=== PATIENT | female | born 1950 | race Caucasian/White ===

== ENCOUNTER 2020-09-29 16:01 | Outpatient (REF) | payer MEDICARE, SELFPAY ==
--- NOTE | ~2020-09-29 | XR_ITS ---
EXAMINATION: XR HAND, LEFT CLINICAL INFORMATION: Left hand pain. COMPARISON: None TECHNIQUE: PA, lateral, and oblique views of the left hand. FINDINGS: There is no evidence of acute fracture or dislocation of the left hand. There is noted to be some joint space narrowing with marginal sclerosis and mild spurring involving the left 5th distal and proximal interphalangeal joint and the 3rd distal interphalangeal joint. There is some mild articular irregularity and joint space narrowing also noted involving the 2nd distal interphalangeal joint. There appear to be some subchondral cysts and, less likely, erosions involving the head of the 5th proximal phalanx, 4th middle phalanx, and 3rd proximal phalanx. XR/XR hand LT min 3V IMPRESSION: No acute fracture or dislocation of the left hand. Findings of osteoarthritis, as described. No significant evidence of erosive arthritides.
== END 2020-09-29 16:02 | disposition home or self-care (01) ==
LOC: HO.HOSX 16:01
PROVIDERS: Visit Provider Orthopaedic Surgery
DX: M79.642 Pain in left hand (principal)
CPT/HCPCS: 73130

== ENCOUNTER → 2020-09-30 14:23 | Outpatient (BNVA) | payer MEDICARE, SELFPAY | PROVIDERS: Visit Provider Orthopaedic Surgery | DX: M79.645 Pain in left finger(s) (principal) | CPT/HCPCS: 99202 ==

== ENCOUNTER 2021-03-02 08:34 | Outpatient (REF) | payer MEDICARE, SELFPAY ==
[2021-03-02 12:18] LABS: Microalbum/Creatinine Ratio Ur 92.2 ug/mg cr
== END 2021-03-02 08:35 | disposition home or self-care (01) ==
LOC: HO.HMGCLDS 08:34
PROVIDERS: PCP Internal Medicine; Visit Provider Internal Medicine
DX: N39.0 Urinary tract infection, site not specified (principal); E11.9 Type 2 diabetes mellitus without complications
CPT/HCPCS: 82043; 87086

== ENCOUNTER 2021-03-08 15:30 | Outpatient (REF) | payer MEDICARE, SELFPAY ==
[2021-03-08 16:54] LABS: Appearance Urine CLOUDY; Color Urine YELLOW; Glucose Urine UA 500 MG/DL (NEG); Leukocyte Esterase Urine 2+ (NEG); Nitrite Urine POS (NEG); PH >= 9.0 (5.0-8.0); Specific Gravity - Urine <= 1.005 (1.005-1.025); UACC Culture Trigger YES; Urine Blood NEG (NEG); Urine Ketones 5 MG/DL (NEG)
[2021-03-08 17:04] LABS: Urine Protein 1+ MG/DL (NEG-TRACE)
[2021-03-08 17:14] LABS: Bacteria Urine 4+ /LPF; Squamous Epithelial Cell Urine TRACE /LPF
== END 2021-03-08 15:31 | disposition home or self-care (01) ==
LOC: HO.LAB 15:30
PROVIDERS: Visit Provider Internal Medicine
DX: R30.0 Dysuria (principal)
CPT/HCPCS: 81001; 87086; 87088; 87186

== ENCOUNTER → 2021-05-27 10:48 | Outpatient (BNVA) | payer MEDICARE, SELFPAY | PROVIDERS: PCP Internal Medicine; Visit Provider Dietitian, Registered | DX: E66.09 Other obesity due to excess calories (principal); E11.9 Type 2 diabetes mellitus without complications; Z68.33 Body mass index [BMI] 33.0-33.9, adult | CPT/HCPCS: 97802 ==

== ENCOUNTER → 2021-06-15 09:23 | Outpatient (BNVA) | payer MEDICARE, SELFPAY | PROVIDERS: PCP Internal Medicine; Visit Provider Registered Nurse Diabetes Educator | DX: E11.9 Type 2 diabetes mellitus without complications (principal) | CPT/HCPCS: 99211 ==

== ENCOUNTER 2021-11-02 09:05 | Outpatient (REF) | payer MEDICARE, SELFPAY ==
[2021-11-02 11:30] LABS: Appearance Urine CLOUDY; Color Urine YELLOW; Glucose Urine UA NEG (NEG); Leukocyte Esterase Urine TRACE (NEG); Nitrite Urine POS (NEG); PH 7.5 (5.0-8.0); Specific Gravity - Urine 1.015 (1.005-1.025); UACC Culture Trigger YES; Urine Blood NEG (NEG); Urine Ketones NEG (NEG); Urine Protein NEG (NEG-TRACE)
[2021-11-02 11:50] LABS: Alanine Aminotransferase 11 U/L (0-31); Alkaline Phosphatase 52 U/L (39-117); Anion Gap 11 (12-20); Aspartate Amino Transferase 17 U/L (5-31); Bilirubin Total 0.7 mg/dL (0.0-1.0); Blood Urea Nitrogen 27 mg/dL (9-16); Calcium 10.2 mg/dL (8.4-10.2); Carbon Dioxide 26 mmol/L (22-29); Chloride 108 mmol/L (96-108); Cholesterol 188 mg/dL; Estimated Glomerular Filt Rate > 60; Glucose Fasting 137 mg/dL (60-99); HDL Cholesterol 43 mg/dL; LDL Cholesterol Calculated 120 mg/dl; Potassium 4.5 mmol/L (3.3-5.1); Sodium 140 mmol/L (135-145); Triglycerides 126 mg/dL
[2021-11-02 11:58] LABS: RBC Urine 0 /HPF (0); Squamous Epithelial Cell Urine 1+ /LPF; WBC Urine 0-2 /HPF (0-4)
[2021-11-02 11:59] LABS: Bacteria Urine 3+ /LPF
[2021-11-02 12:11] LABS: Creatinine Urine 124.93 mg/dL; Microalbum/Creatinine Ratio Ur 10.4 ug/mg cr
[2021-11-06 12:41] LABS: Vitamin D 25-OH, D2 <4 ng/mL; Vitamin D 25-OH, D3 18 ng/mL; Vitamin D 25-OH, Total 18 ng/mL (30-100)
== END 2021-11-02 09:06 | disposition home or self-care (01) ==
LOC: HO.HMGCLDS 09:05
PROVIDERS: Internal Medicine; PCP Internal Medicine; Visit Provider Internal Medicine
DX: E55.9 Vitamin D deficiency, unspecified (principal); R30.0 Dysuria; E11.9 Type 2 diabetes mellitus without complications; E78.5 Hyperlipidemia, unspecified
CPT/HCPCS: 36415; 80053; 80061; 81001; 82043; 82306; 87086

== ENCOUNTER 2022-12-19 08:10 | Outpatient (REF) | payer MEDICARE, SELFPAY ==
[2022-12-19 12:08] LABS: Hematocrit 41.1 % (37.0-47.0); Hemoglobin 13.6 g/dl (12.0-16.0); Mean Corpuscular HGB Conc 33.1 g/dl (31.0-35.0); Mean Corpuscular Hemoglobin 29.4 pg (27.0-33.0); Mean Platelet Volume 11.5 fL (9.4-12.3); Platelet Count 263 X10*3/uL (160-400); Red Blood Count 4.62 X10*6/uL (4.20-5.50); Red Cell Distribution Width 14.5 % (11.0-16.0); White Blood Count 10.1 X10*3/uL (4.8-10.8)
[2022-12-19 12:27] LABS: Estimated Average Glucose 174 mg/dL; Hemoglobin A1c % 7.7 %
[2022-12-19 12:30] LABS: Appearance Urine Cloudy; Color Urine Yellow; Glucose Urine UA Negative (Negative); Leukocyte Esterase Urine Small (1+) (Negative); Nitrite Urine Positive (Negative); PH >= 9.0 (5.0-9.0); UMIC TRIGGER UA YES; Urine Blood Negative (Negative); Urine Ketones Negative (Negative); Urine Protein Trace mg/dL (Neg-Trace)
[2022-12-19 12:45] LABS: Bacteria Urine 4+ (None Seen); Hyaline Casts Urine 0-2 /LPF (0-2); Other Crystals Urine Present; RBC Urine 0-2 /HPF (0-2); WBC Urine 0-5 /HPF (0-5)
[2022-12-19 13:00] LABS: Alanine Aminotransferase 9 U/L (0-31); Alkaline Phosphatase 58 U/L (39-117); Anion Gap 12 (12-20); Aspartate Amino Transferase 15 U/L (5-31); Bilirubin Direct 0.2 mg/dL (0.0-0.5); Bilirubin Total 0.4 mg/dL (0.0-1.0); Blood Urea Nitrogen 21 mg/dL (9-16); Calcium 10.9 mg/dL (8.4-10.2); Carbon Dioxide 28 mmol/L (22-29); Chloride 107 mmol/L (96-108); Cholesterol 159 mg/dL; Estimated Glomerular Filt Rate > 60; Glucose Random 185 mg/dL (60-115); HDL Cholesterol 37 mg/dL; LDL Cholesterol Calculated 94 mg/dl; Potassium 4.9 mmol/L (3.3-5.1); Sodium 142 mmol/L (135-145); Total Protein 7.2 g/dL (6.5-8.0); Triglycerides 142 mg/dL
[2022-12-19 13:01] LABS: Thyroid Stimulating Hormone 0.88 uIU/mL (0.32-4.0)
[2022-12-19 13:38] LABS: Creatinine Urine 111.61 mg/dL; Microalbum/Creatinine Ratio Ur 14.3 ug/mg cr
== END 2022-12-19 08:11 | disposition home or self-care (01) ==
LOC: HO.HMGCLDS 08:10
PROVIDERS: PCP Internal Medicine; Visit Provider Internal Medicine
DX: I10 Essential (primary) hypertension (principal); E66.9 Obesity, unspecified; E11.9 Type 2 diabetes mellitus without complications
CPT/HCPCS: 36415; 80048; 80061; 80076; 81001; 82043; 83036; 84443; 85027

== ENCOUNTER 2022-12-22 13:20 | Outpatient (AMB) | payer MEDICARE, SELFPAY ==
--- NOTE | 2022-12-22 13:34 | A.OFFPC_ITS ---
Vital Signs 12/22/22 13:36 Height 5 ft 4 in Weight 200 lb 6 oz BMI 34.4 BP 120/74 Blood Pressure Location Lt brachial Position Sitting Pulse 103 H Pulse Source Pulse Oximeter Pulse Oximetry (%) 94 Oxygen Delivery Method Room Air Intake Visit Reasons: PE Intake Note: Patient is here today for a physical. On Site Property Manager Required: No Disease Case Manager: Not Required per policy Accompanied by: Self / Same As Patient Allergies metformin Adverse Reaction (Intermediate, Verified 12/22/22 14:42) abdominal bloating Medication List - Last Reconciled 12/22/22 by Feliberto Marx MD cholecalciferol (vitamin D3) 25 mcg PO DAILY 90 days [diabetic shoes with inserts As directed] docusate sodium (Colace) 100 mg PO .every other day dulaglutide (Trulicity) 0.75 mg (0.5 mL) subcut QWEEK flash glucose sensor (FreeStyle Fabiola 2 Sensor kit) USE DIRECTED hydrochlorothiazide 25 mg PO DAILY lisinopril 10 mg PO DAILY meloxicam 15 mg PO DAILY metformin 500 mg PO BID nystatin 1 appl topical BID PRN pioglitazone 30 mg PO DAILY 90 days polyethylene glycol 3350 (Miralax) 17 grams PO DAILY PRN Tobacco use date assessed: 12/22/22 Fall risk assessment: No Falls in past year Last assessed Fall Risk: 12/22/22 Dental Screening Dental Screen Date: 12/22/22 Did you have a dental visit in the last 12 months?: Yes Did you have a dental problem in the last 6 months where you did not have access to dental care?: No Was dental information given to patient?: Patient has dentist HPI PE HPI Details 72-year-old female presents to the office requesting an annual physical. In addition patient wants to talk about her diabetes. Since she started using the glucose sensor, she has been checking her sugars very regularly. Her A1c has dropped from 10-7.7. Compliant with all her medications. Patient reports that her depression symptoms have improved. Able to function and do all activities of daily living. Patient is trying to exercise and follow a diabetic diet. [facility] Medical History Class 1 obesity with body mass index (BMI) of 33.0 to 33.9 in adult Constipation by delayed colonic transit Diabetes mellitus Essential (primary) hypertension Surgical History No history of previous surgery Family History Mother No problems noted. Father No problems noted. Family/Other Mental health disorder Social History Housing: House Alcohol intake: never Patient Tobacco Use Status: Current everyday Tobacco user Tobacco use type: Cigarette Cigarettes Per Day: 3 e-Cigarette/Vaping Use: Never Used Second Hand Smoke Exposure: Yes service: No Current occupational status: retired Cognitive needs: No Hearing needs: No Vision needs: Yes (adri) Questionnaire PHQ-9 Over the last 2 weeks, how often have you been bothered by any of the following problems? 1. Little interest or pleasure in doing things: not at all 2. Feeling down, depressed, or hopeless: not at all 3. Trouble falling or staying asleep, or sleeping too much: not at all 4. Feeling tired or having little energy: not at all 5. Poor appetite or overeating: not at all 6. Feeling bad about yourself - or that you are a failure or have let yourself or your family down: not at all 7. Trouble concentrating on things, such as reading the newspaper or watching television: not at all 8. Moving or speaking so slowly that other people could have noticed. Or the o pposite - being so fidgety or restless that you have been moving around a lot more than usual: not at all 9. Thoughts that you would be better off or of hurting yourself in some way: not at all Total score: 0 Depression Screening Interpretation: Negative Source: Developed by Drs. Ravin Miles, Christen Adhikari, Ben Fajardo and colleagues, with an educational betty from [employer]. Thrive Questionnaire Date Thrive assessed: 12/22/22 I am a: Patient What is your living situation today?: I have a steady place to live Within the past 12 months, did the food you bought not last and you didn't have the money to get more?: Never true Within the past 12 months, did you worry whether your food would run out before you got money to buy more?: Never true Do you have trouble paying for medicines?: No Do you have trouble getting transportation to medical appointments?: No Do you have trouble paying your heating and electricity bill?: No Do you have trouble taking care of your child, family member or friend?: No Do you have trouble with day-to-day activities such as bathing, preparing meals, shopping, managing finances, etc.?: No Are you currently unemployed and looking for a job?: No Are you interested in more education?: No Currently or been in a relationship where the following occur: no concerns reported AUDIT C Alcohol Use Questionnaire (AUDIT-C) 1. How often do you have a drink containing alcohol?: Never Total Score: 0 SUKHWINDER-7 AMB Questionnaire SUKHWINDER-7 Date SUKHWINDER - 7 assessed: 12/22/22 Feeling nervous, anxious, or on edge: 0 = Not at all Not being able to stop or control worryin = Not at all Worrying too much about different things: 0 = Not at all Trouble relaxin = Not at all Being so restless that it is hard to sit still: 0 = Not at all Becoming easily annoyed or irritable: 0 = Not at all Feeling afraid as if something awful might happen: 0 = Not at all Total SUKHWINDER-7 score (0-4 normal; 5-9 mild; 10-14 moderate; 15-21 severe): 0 Source: Developed by Drs. Ravin Miles, Christen Adhikari, Ben Fajardo and colleagues, with an educational betty from [employer]. Physical exam (Primary Care) Vital Signs: Last Vital Signs Pulse 103 H 12/22/22 13:36 BP 120/74 12/22/22 13:36 Pulse Ox 94 12/22/22 13:36 Oxygen Delivery Method Room Air 12/22/22 13:36 Care Plan Goal for BP management: Blood pressure in range. Continue current medications BMI result Body Mass Index 34.4 BMI Assessment/Plan discussion: High (1 lb per week weight loss suggested.) BMI High, discussed plan: lifestyle, weight reduction and dietary Tobacco/Smoking Status: Tobacco use Status Tobacco use date assessed 12/22/22 12/22/22 13:43 Patient Tobacco Use Status Current everyday Tobacco 12/22/22 13:43 Tobacco use type Cigarette 12/22/22 13:43 e-Cigarette/Vaping Use Never Used 12/22/22 13:43 Are you ready to quit: No Tobacco cessation counseling provided: Yes PHQ-9: PHQ-9 Score PHQ-9: Total score 0 12/22/22 13:43 Depression Screening Interpretation: Negative Thrive Assessment: Date of Thrive Assessment Date Thrive assessed 12/22/22 12/22/22 13:43 Currently or been in a relationship where the following occur: no concerns reported Const General: cooperative, healthy appearing and comfortable HENMT Head: Yes normal to inspection and Yes atraumatic Eyes General: appearance normal, both eyes and all related structures Neck Neck: Yes normal visual inspection and Yes full ROM Chest Chest palpation & inspection: normal inspection of the chest Resp Effort & Inspection: normal respiratory effort Auscultation: clear to auscultation bilaterally Cardio Jugular venous distension: no JVD Palpation: normal PMI Rate: regular rate Heart sounds: S1 normal heart sound present and S2 normal heart sound present GI Palpation (GI): Soft to palpation and No hepatosplenomegaly present Extrem General: Yes normal to inspection and Yes full ROM Assessment and Plan Assessment & Plan (1) Diabetes mellitus: Code(s): E11.9 - Type 2 diabetes mellitus without complications Plan: Trulicity added to the regimen. 15 minutes spent on counseling on the medication use. (2) Class 1 obesity with body mass index (BMI) of 33.0 to 33.9 in adult: Code(s): E66.9 - Obesity, unspecified; Z68.33 - Body mass index [BMI] 33.0-33.9, adult Qualifiers: Obesity type: due to excess calories Serious obesity comorbidity presence: with serious comorbidity Qualified Code(s): E66.09 - Other obesity due to excess calories; Z68.33 - Body mass index [BMI] 33.0-33.9, adult Plan: Counseling on the importance of diet and exercise done. (3) Essential (primary) hypertension: Code(s): I10 - Essential (primary) hypertension Plan: Blood pressure is in range. Continue current medications. (4) Annual physical exam: Code(s): Z00.00 - Encounter for general adult medical examination without abnormal findings Plan: Mammogram, colonoscopy, DEXA scan ordered. Orders: Orders XR DEXA axial skeleton Today M81.0 - Age-related osteoporosis without current pathological fracture MM screening mammo BI Today Z12.31 - Encounter for screening mammogram for malignant neoplasm of breast Referrals Gastroenterology Referral Z12.11 - Encounter for screening for malignant neoplasm of colon Medications: New dulaglutide (Trulicity) 0.75 mg (0.5 mL) subcut QWEEK 2 mL 1RF Coding Level of Care Code Est Pt Level 4 (52898) Est Pt Prev Care >65y(91780) Diagnoses Diabetes mellitus E11.9 Class 1 obesity with body mass index (BMI) of 33.0 to 33.9 in adult E66.09; Z68.33 Obesity type: due to excess calories Serious obesity comorbidity presence: with serious comorbidity Essential (primary) hypertension I10 Annual physical exam Z00.00
[2022-12-22 13:36] VITALS: BP 120/74; PULSE 103; O2SAT 94; BMI 34.4
== END 2022-12-22 16:27 | disposition home or self-care (01) ==
PROVIDERS: PCP Internal Medicine; Visit Provider Internal Medicine
DX: Z00.00 Encounter for general adult medical examination without abnormal findings (principal); E11.9 Type 2 diabetes mellitus without complications; Z68.33 Body mass index [BMI] 33.0-33.9, adult; E66.09 Other obesity due to excess calories; I10 Essential (primary) hypertension
CPT/HCPCS: 99397

== ENCOUNTER 2023-01-24 13:23 | Outpatient (REF) | payer MEDICARE, SELFPAY ==
--- NOTE | ~2023-01-24 | MM_ITS ---
EXAMINATION: MM SCREENING DIGITAL BREAST TOMOSYNTHESIS, BILATERAL CLINICAL INFORMATION: Screening. Asymptomatic. COMPARISON: Mammography: There are no prior mammograms for comparison. TECHNIQUE: Digital breast tomosynthesis is performed in both the craniocaudal and mediolateral oblique views along with computer-aided detection (CAD). Synthesized 2D images are generated from the tomosynthesis. FINDINGS: There are scattered areas of fibroglandular density (ACR BI-RADS breast composition Category b). There are no significant masses, abnormal calcifications, or other abnormalities. MM/MM tomosynthesis screening BI IMPRESSION: No mammographic evidence of malignancy. ASSESSMENT: BI-RADS BI-RADS 1 - Negative RECOMMENDATION: Routine annual mammography screening. 1 year F/U This examination should not preclude the clinical evaluation of a suspicious palpable abnormality. This patient's information was entered into a reminder system with a target due date for their next mammogram.
--- NOTE | ~2023-01-24 | MM_ITS ---
EXAMINATION: BONE DENSITOMETRY CLINICAL INDICATION: Age-related osteoporosis without current pathological fracture. COMPARISON: This is the patient's baseline examination. TECHNIQUE: Using a [employer] DXA System (software version: 13.1) manufactured by [employer], dual-energy x-ray absorptiometry was performed of the lumbar spine and left hip. The images are of good technical quality. Summary results are attached. FINDINGS: LEFT FEMUR, NECK: BMD 0.903 g/cm2, Z-score 0.3, T-score -1.0, normal. LEFT FEMUR, TOTAL: BMD 0.973 g/cm2, Z-score 0.7, T-score -0.3, normal. AP SPINE L1-L4: BMD 1.170 g/cm2, Z-score 0.8, T-score -0.1, normal. IDENTIFIED RISK FACTORS: Early menopause, secondary osteoporosis, thiazide, tobacco user (current smoker). HISTORY OF FRACTURE: None listed. MEDICATIONS: Vitamin D. MM/XR DEXA axial skeleton IMPRESSION: 1. DIAGNOSIS: Normal bone density based on the lowest T-score value of -1.0 in the femoral neck applying World Health Organization criteria. 2. 10-YEAR FRACTURE RISK PREDICTION, FRAX: According to the guidelines, FRAX calculation should only be performed on patients in the osteopenia bone density category. Therefore, FRAX was not performed on this patient. 3. Treatment Recommendations: NOF guidelines recommend consideration for treatment in postmenopausal women and men age 50 and older presenting with the following: -A hip or vertebral (clinical or morphometric) fracture. -T-score less than or equal to -2.5 at the femoral neck or spine after appropriate evaluation to exclude secondary causes. -Low bone mass at the hip or spine and a 10-year fracture probability by FRAX of greater than or equal to 3% for hip fracture or greater than or equal to 20% for major osteoporotic fracture based on the [place] adapted WHO algorithm. 4. Other Recommendations: All treatment decisions require clinical judgment and consideration of individual patient factors, including patient preferences, comorbidities, previous drug use, risk factors not captured in the FRAX model (e.g. frailty, falls, vitamin D deficiency, increased bone turnover, interval significant decline in bone density) and possible under or overestimation of fracture risk by FRAX. FUTURE SCAN RECOMMENDATION: People with diagnosed cases of osteoporosis or at high risk for fracture should have regular bone mineral density tests. For patients eligible for Medicare, routine testing is allowed once every 2 years. The testing frequency can be increased to one year for patients who have rapidly progressing disease, those who are receiving or discontinuing medical therapy to restore bone mass, or have additional risk factors.
== END 2023-01-24 13:24 | disposition home or self-care (01) ==
LOC: HO.MAMMO 13:23
PROVIDERS: PCP Internal Medicine; Visit Provider Internal Medicine
DX: Z12.31 Encounter for screening mammogram for malignant neoplasm of breast (principal); Z13.820 Encounter for screening for osteoporosis; Z78.0 Asymptomatic menopausal state; M81.0 Age-related osteoporosis without current pathological fracture
CPT/HCPCS: 77063; 77067; 77080

== ENCOUNTER → 2023-01-24 13:30 | Outpatient (BNV) | payer MEDICARE, SELFPAY | PROVIDERS: PCP Internal Medicine; Visit Provider Radiology Diagnostic Radiology | DX: M81.0 Age-related osteoporosis without current pathological fracture (principal) | CPT/HCPCS: 77063; 77067; 77080 ==

== ENCOUNTER 2023-02-07 11:05 | Outpatient (AMB) | payer MEDICARE, SELFPAY ==
[2023-02-07 11:24] VITALS: BMI 34.2
--- NOTE | 2023-02-07 11:24 | A.OFFVIS_ITS ---
Intake VS Expanded 02/07/23 11:24 02/12/23 22:38 Height 5 ft 4 in 5 ft 4 in Weight 199 lb 8.293 oz 199 lb BMI 34.2 34.2 Intake Visit Reasons: Type 2 diabetes mellitus without complications Allergies metformin Adverse Reaction (Intermediate, Verified 12/22/22 14:42) abdominal bloating HPI Nutrition Presentation Details Pt presents for MNT for T2DM. Pt was referred by PCP, Dr. Marx. Pt reports eating well. Pt needs review on reading food labels and diabetic meal plan Pt reports participating in [employer]. Receives diabetic meals from from meals on wheels program. Reports having 3 meals/day B: sand egg/ham or ham/cheese, coffee snack on fruit (from Meals on wheels) L; meals on wheels : broccoli, salmon and fist size starch, water or lemon water or D: sand or cereal with meals or meals from meals on wheel physical activity: daily life activities etoh/smoking: denies CDI-[place]-[employer] Equation Height 5 ft 4 in Weight 199 lb Resting Metabolic Rate 1402.51 Calculated Activity Level Sedentary Calories Needed to Maintain Weight 1683.01 Diagnosis Nutrition problem #1 food nutri know defi As related to (etiology) #1 diagnosis As evidenced by (sign/symptom) #1 food recall (statements of needing review) Most Recent Diabetes Results: Microalb/Creat Ratio 14.3 ug/mg cr 12/19/22 Cholesterol 159 mg/dL 12/19/22 HDL Cholesterol 37 mg/dL 12/19/22 Triglycerides 142 mg/dL 12/19/22 Creatinine 0.92 mg/dL (0.5-1.4) 12/19/22 Blood Urea Nitrogen 21 mg/dL (9-16) H 12/19/22 Sodium 142 mmol/L (135-145) 12/19/22 Potassium 4.9 mmol/L (3.3-5.1) 12/19/22 Chloride 107 mmol/L (96-108) 12/19/22 Carbon Dioxide 28 mmol/L (22-29) 12/19/22 Calcium 10.9 mg/dL (8.4-10.2) H 12/19/22 AST 15 U/L (5-31) 12/19/22 ALT 9 U/L (0-31) 12/19/22 Total Protein 7.2 g/dL (6.5-8.0) 12/19/22 Albumin 4.0 g/dL (3.5-5.0) 12/19/22 [facility] Medical History Class 1 obesity with body mass index (BMI) of 33.0 to 33.9 in adult Constipation by delayed colonic transit Diabetes mellitus Essential (primary) hypertension Surgical History No history of previous surgery Family History Mother No problems noted. Father No problems noted. Family/Other Mental health disorder Social History Housing: House Alcohol intake: never Patient Tobacco Use Status: Current everyday Tobacco user Tobacco use type: Cigarette Cigarettes Per Day: 3 e-Cigarette/Vaping Use: Never Used Second Hand Smoke Exposure: Yes service: No Current occupational status: retired Cognitive needs: No Hearing needs: No Vision needs: Yes (glass) Assessment & Plan Assessment & Plan (1) Diabetes mellitus: Code(s): E11.9 - Type 2 diabetes mellitus without complications Plan: wt: 90 kg Est kcal needs as per MSJ: 1700 (40% carb, 30% protein/fat) Est fluid needs as per 25-30 ml/d: 1197-2676 Est prot per day as per 1 g/kg bw: 90 Recommend fiber intake : 8-10 g per day and gradually increase to 25-28 g per day for women and 35-38 g for men or as tolerated Recommend sodium intake per day : less than 2000 mg Educated patient on: ( R = reviewed V = verbalizes understanding N/R = needs review N/A = not applicable * Food sources of carbohydrate, adequate serving sizes and its role in various health conditions: R * Differences between complex carbohydrates a simple carbohydrates, role of fiber in diet: R * Differences between types of fats and role in diet (mono on saturated fat fatty acids, saturated fatty acids, trans fats): R * Food sources of sodium in salt and healthy modifications for heart health in kidney health: R * Healthy plate method concept: R V * Physical activity: Benefits a precaution: R V * Hypoglycemia protocol (rule of 15): R V * Dietary prevention of Hyperglycemia: R V * medication review Trulicity with tobacco prevention health educator Patient Instructions: Follow healthy plate method at dinner Drink water with meals Have a yogurt as a snack read food labels to choose lower fat food options and amount of carb per serving size (aim at 60 g of carbs or less at meal following healthy plate method, and choose 5% of daily value for saturated fatss Coding Level of Care Code Nutr Indiv Intake (69550) Diagnoses Diabetes mellitus E11.9 Time Spent (min) 30
[2023-02-13 09:00] VITALS: BMI 34.2
== END 2023-02-07 11:54 | disposition home or self-care (01) ==
PROVIDERS: PCP Internal Medicine; Visit Provider Dietitian, Registered
DX: E11.9 Type 2 diabetes mellitus without complications (principal)

== ENCOUNTER → 2023-02-07 11:05 | Outpatient (BNVA) | payer MEDICARE, SELFPAY | PROVIDERS: PCP Internal Medicine; Visit Provider Dietitian, Registered | DX: E11.9 Type 2 diabetes mellitus without complications (principal) | CPT/HCPCS: 97802 ==

== ENCOUNTER 2023-02-27 09:53 | Outpatient (AMB) | payer MEDICARE, SELFPAY ==
--- NOTE | 2023-02-27 09:59 | A.OFFVIS_ITS ---
Intake Vital Signs 02/27/23 10:04 Height 5 ft 4 in Weight 200 lb BMI 34.3 BP 145/78 H Blood Pressure Location Lt brachial Position Sitting Pulse 83 Intake Visit Reasons: Colonoscopy Screening Intake Note: Patient 1st pre colonoscopy screening. Patient cc: occasional bloating, swallowing problem when she eat fast, and denies any other GI issues. Perfusionist Required: No Accompanied by: Self / Same As Patient Allergies metformin Adverse Reaction (Intermediate, Verified 02/27/23 09:59) abdominal bloating Medication List - Last Reconciled 02/27/23 by Jessie Alvarez PA-C cholecalciferol (vitamin D3) 25 mcg PO DAILY 90 days [diabetic shoes with inserts As directed] docusate sodium (Colace) 100 mg PO .every other day dulaglutide (Trulicity) 0.75 mg (0.5 mL) subcut QWEEK flash glucose sensor ([employer] Fabiola 2 Sensor kit) USE DIRECTED hydrochlorothiazide 25 mg PO DAILY lisinopril 10 mg PO DAILY meloxicam 15 mg PO DAILY metformin 500 mg PO BID nystatin 1 appl topical BID PRN pioglitazone 30 mg PO DAILY 90 days polyethylene glycol 3350 (Miralax) 17 grams PO DAILY PRN HPI HPI Comments History of Present Illness Details A 72 y/o female referred for index screening colonoscopy She has a good appetite If she eats too fast she will choke No cardiac or respiratory She is a smoker-has tried to quit- Activia- for constipation good response Nausea, vomiting hematemesis, hematochezia fever chills PFSH Medical History Class 1 obesity with body mass index (BMI) of 33.0 to 33.9 in adult Constipation by delayed colonic transit Diabetes mellitus Essential (primary) hypertension Surgical History No history of previous surgery Family History Mother No problems noted. Father No problems noted. Family/Other Mental health disorder Social History Housing: House Alcohol intake: never Patient Tobacco Use Status: Current everyday Tobacco user Tobacco use type: Cigarette Cigarettes Per Day: 3 e-Cigarette/Vaping Use: Never Used Second Hand Smoke Exposure: Yes service: No Current occupational status: retired Cognitive needs: No Hearing needs: No Vision needs: Yes (glass) Review of Systems Const All systems reviewed & are unremarkable except as noted in HPI and below Card Denies chest pain and Denies dyspnea Resp Denies dyspnea GI Denies abdominal pain, Denies bloating, Denies hematochezia, Reports constipation, Denies diarrhea, Denies nausea and Denies vomiting Physical Exam Vital Signs: Last Vital Signs Pulse 83 02/27/23 10:04 BP 145/78 H 02/27/23 10:04 BMI result Body Mass Index 34.3 Const General: cooperative, healthy appearing, comfortable and no acute distress Orientation/consciousness: patient oriented x3 Limitations: no limitations Eyes Sclerae: sclerae normal Resp Effort & Inspection: normal respiratory effort and able to speak in complete sentences Auscultation: clear to auscultation bilaterally, no rales, no rhonchi and no wheezes Cardio Rate: regular rate Rhythm: regular rhythm Heart sounds: S1 normal heart sound present and S2 normal heart sound present GI Palpation (GI): Soft to palpation and nontender Auscultation: normal bowel sounds Skin General skin exam: no rashes or lesions noted Neuro General: patient oriented x3 Extrem General: Yes full ROM Psych Appearance: grossly normal and well kempt Mental Status: mental status grossly normal Speech and movement: Normal speech and movement present Affect: normal affect Attitude: cooperative Thought process: Normal thought process present Thought content: Normal thought content present Insight: Good insight present (Psych) Judgement: Good judgement present (Psych) Assessment & Plan Assessment & Plan (1) Constipation by delayed colonic transit: Code(s): K59.01 - Slow transit constipation Plan: A consistent bowel regimen Maintain high-fiber diet (2) Screening for colon cancer: Code(s): Z12.11 - Encounter for screening for malignant neoplasm of colon Plan: Index screening colonoscopy MiraLax Gatorade split MiraLax daily 5 days prior to procedure Omit metformin evening before procedure as well as no diabetes medications morning of procedure Orders: Orders Colonoscopy - GI Use Only Today Z12.11 - Encounter for screening for malignant neoplasm of colon Medications: New bisacodyl (Dulcolax (bisacodyl)) Take 4 tablets by mouth at 12:00pm the day before your procedure. 20 mg (4 x 5 mg) PO ONCE 1 day 4 tabs 0RF colonoscopy prep Z12.11 - Encounter for screening for malignant neoplasm of colon polyethylene glycol 3350 (Miralax) Take as directed by mouth the day before your procedure. 238 grams PO ONCE 1 day PRN 238 grams 0RF laxative effect Patient Instructions: Index screening colonoscopy MiraLax Gatorade split MiraLax daily 5 days prior to procedure Omit metformin evening before procedure as well as no diabetes medications morning of procedure Coding Level of Care Code New Pt Level 3 (33659) Diagnoses Constipation by delayed colonic transit K59.01 Screening for colon cancer Z12.11 Time Spent (min) 30
[2023-02-27 10:04] VITALS: BP 145/78; PULSE 83; BMI 34.3
== END 2023-02-27 11:31 | disposition home or self-care (01) ==
PROVIDERS: PCP Internal Medicine; Visit Provider Physician Assistant
DX: K59.01 Slow transit constipation (principal); Z12.11 Encounter for screening for malignant neoplasm of colon
CPT/HCPCS: 99203

== ENCOUNTER → 2023-02-27 09:53 | Outpatient (BNVA) | payer MEDICARE, SELFPAY | PROVIDERS: PCP Internal Medicine; Visit Provider Physician Assistant ==

== ENCOUNTER 2023-07-12 08:55 | Outpatient (AMB) | payer MEDICARE, SELFPAY ==
--- NOTE | 2023-07-12 09:33 | A.OFFPC_ITS ---
Vital Signs 07/12/23 09:35 Height 5 ft 4 in Weight 203 lb 4 oz BMI 34.9 BP 100/70 Blood Pressure Location Lt brachial Position Sitting Pulse 113 H Pulse Source Pulse Oximeter Pulse Oximetry (%) 95 Oxygen Delivery Method Room Air Intake Visit Reasons: Referral Dermatology/ eye dr Intake Note: Patient is here today for referral for dermatology, eye dr, sleep study. 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 Lead Developer: Not Required per policy Accompanied by: Self / Same As Patient Allergies metformin Adverse Reaction (Intermediate, Verified 07/14/23 15:32) abdominal bloating Medication List - Last Reconciled 07/14/23 by Feliberto Marx MD bisacodyl (Dulcolax (bisacodyl)) 20 mg (4 x 5 mg) PO ONCE 1 day cholecalciferol (vitamin D3) 25 mcg PO DAILY 90 days [diabetic shoes with inserts As directed] docusate sodium (Colace) 100 mg PO .every other day dulaglutide (Trulicity) 0.75 mg (0.5 mL) subcut QWEEK flash glucose sensor (FreeStyle Fabiola 2 Sensor kit) USE DIRECTED hydrochlorothiazide 25 mg PO DAILY lisinopril 10 mg PO DAILY meloxicam 15 mg PO DAILY metformin 500 mg PO BID nystatin 1 appl topical BID PRN pioglitazone 30 mg PO DAILY 90 days polyethylene glycol 3350 (Miralax) 17 grams PO DAILY PRN polyethylene glycol 3350 (Miralax) 238 grams PO ONCE PRN 1 day Tobacco use date assessed: 07/12/23 Fall risk assessment: No Falls in past year Last assessed Fall Risk: 07/12/23 Dental Screening Dental Screen Date: 07/12/23 Did you have a dental visit in the last 12 months?: No Did you have a dental problem in the last 6 months where you did not have access to dental care?: No Was dental information given to patient?: No (dentures) HPI Referral Dermatology/ eye HPI Details 73-year-old female presents to the [facility] to discuss her chronic medical conditions. Patient reports that she may have seasonal affective disorder. In winter she stops taking all her medications and sits at home. She has not been taking her metformin or her other pills for the past 6 weeks. Not checking her blood sugars at home. No headaches or blurred vision. [facility] Medical History (Updated 07/14/23 @ 15:37 by Feliberto Marx MD) Endogenous depression Class 1 obesity with body mass index (BMI) of 33.0 to 33.9 in adult Constipation by delayed colonic transit Essential (primary) hypertension Diabetes mellitus Surgical History No history of previous surgery Family History Mother No problems noted. Father No problems noted. Family/Other Mental health disorder Social History (Updated 07/12/23 @ 09:47 by TORRI Arias) Housing: House Alcohol intake: never Patient Tobacco Use Status: Current everyday Tobacco user Tobacco use type: Cigarette Cigarettes Per Day: 6 e-Cigarette/Vaping Use: Never Used Second Hand Smoke Exposure: Yes service: No Current occupational status: retired Cognitive needs: No Hearing needs: No Vision needs: Yes (glass) Questionnaire PHQ-9 Over the last 2 weeks, how often have you been bothered by any of the following problems? 1. Little interest or pleasure in doing things: more than half the days 2. Feeling down, depressed, or hopeless: more than half the days 3. Trouble falling or staying asleep, or sleeping too much: more than half the days 4. Feeling tired or having little energy: several days 5. Poor appetite or overeating: not at all 6. Feeling bad about yourself - or that you are a failure or have let yourself or your family down: more than half the days 7. Trouble concentrating on things, such as reading the newspaper or watching television: not at all 8. Moving or speaking so slowly that other people could have noticed. Or the opposite - being so fidgety or restless that you have been moving around a lot more than usual: not at all 9. Thoughts that you would be better off or of hurting yourself in some way: not at all Total score: 9 Depression Screening Interpretation: Positive (Request for therapy has been o rdered.) Depression Screening Follow-up: Community Mental Health Worker F/U Depression Screening Done: Yes Source: Developed by Drs. Ravin Miles, Christen Adhikari, Ben Fajardo and colleagues, with an educational betty from [employer] Thrive Questionnaire Date Thrive assessed: 07/12/23 I am a: Patient What is your living situation today?: I have a steady place to live Within the past 12 months, did the food you bought not last and you didn't have the money to get more?: Never true Within the past 12 months, did you worry whether your food would run out before you got money to buy more?: Never true Do you have trouble paying for medicines?: No Do you have trouble getting transportation to medical appointments?: No Do you have trouble paying your heating and electricity bill?: No Do you have trouble taking care of your child, family member or friend?: No Do you have trouble with day-to-day activities such as bathing, preparing meals, shopping, managing finances, etc.?: No Are you currently unemployed and looking for a job?: No Are you interested in more education?: No Currently or been in a relationship where the following occur: no concerns reported THRIVE Score: 0 AUDIT C Alcohol Use Questionnaire (AUDIT-C) 1. How often do you have a drink containing alcohol?: Never Total Score: 0 SUKHWINDER-7 AMB Questionnaire SUKHWINDER-7 Date SUKHWINDER - 7 assessed: 07/12/23 Feeling nervous, anxious, or on edge: 3 = Nearly every day Not being able to stop or control worryin = More than half the days Worrying too much about different things: 2 = More than half the days Trouble relaxin = Several days Being so restless that it is hard to sit still: 2 = More than half the days Becoming easily annoyed or irritable: 1 = Several days Feeling afraid as if something awful might happen: 0 = Not at all Total SUKHWINDER-7 score (0-4 normal; 5-9 mild; 10-14 moderate; 15-21 severe): 11 Source: Developed by Drs. Ravin Miles, Ben De La Vega and colleagues, with an educational betty from [employer] Physical exam (Primary Care) Vital Signs: Last Vital Signs Pulse 113 H 07/12/23 09:35 BP 100/70 07/12/23 09:35 Pulse Ox 95 07/12/23 09:35 Oxygen Delivery Method Room Air 07/12/23 09:35 Care Plan Goal for BP management: Blood pressure is in range. Continue current medications. BMI result Body Mass Index 34.9 BMI Assessment/Plan discussion: High (1 lb per week weight loss suggested.) BMI High, discussed plan: lifestyle, weight reduction and dietary Tobacco/Smoking Status: Tobacco use Status Tobacco use date assessed 07/12/23 07/12/23 09:36 Patient Tobacco Use Status Current everyday Tobacco 07/12/23 09:47 Tobacco use type Cigarette 07/12/23 09:47 e-Cigarette/Vaping Use Never Used 07/12/23 09:47 PHQ-9: PHQ-9 Score PHQ-9: Total score 9 07/12/23 09:51 Depression Screening Interpretation: Positive (Request for therapy has been ordered.) Depression Screening Follow-up: Community Mental Health Worker F/U Thrive Assessment: Date of Thrive Assessment Date Thrive assessed 07/12/23 07/12/23 09:36 Currently or been in a relationship where the following occur: no concerns reported Const General: cooperative and healthy appearing Nutritional Appearance: well nourished Orientation/consciousness: patient oriented x3 Limitations: no limitations HENMT Head: Yes normal to inspection Eyes General: appearance normal, both eyes and all related structures Neck Neck: Yes normal visual inspection Chest Chest palpation & inspection: normal palpation of entire chest wall Resp Effort & Inspection: normal respiratory effort Neuro General: patient oriented x3 Results AMB Hemoglobin A1c AMB Hemoglobin A1c 10.2 % Last Edit by TORRI Arias on 07/12/23 09:5 4 Results Reviewed Results Reviewed: Laboratory Last Values Hgb A1c (Clinic) 10.2 % (4.0-6.0) H 07/12/23 09:51 Assessment and Plan Assessment & Plan (1) Diabetes mellitus: Code(s): E11.9 - Type 2 diabetes mellitus without complications Plan: Patient was encouraged to restart medications. Informed that her elevated A1c was 10.2 (2) Essential (primary) hypertension: Code(s): I10 - Essential (primary) hypertension Plan: Patient was encouraged to restart medications. Counseling on the dangers of uncontrolled hypertension done. (3) Endogenous depression: Code(s): F33.2 - Major depressive disorder, recurrent severe without psychotic features Plan: I suggested patient start seeing a therapist. She would benefit from antidepressant medications. Patient very reluctant to start the same. Orders: Orders AMB Hemoglobin A1c 07/12/23 E11.9 - Type 2 diabetes mellitus without complications Coding Level of Care Code Est Pt Level 4 (80656) Diagnoses Diabetes mellitus E11.9 Essential (primary) hypertension I10 Endogenous depression F33.2
[2023-07-12 09:35] VITALS: BP 100/70; PULSE 113; O2SAT 95; BMI 34.9
== END 2023-07-12 10:38 | disposition home or self-care (01) ==
PROVIDERS: PCP Internal Medicine; Visit Provider Internal Medicine
DX: E11.9 Type 2 diabetes mellitus without complications (principal)
CPT/HCPCS: 83036; 99214

== ENCOUNTER 2023-07-25 13:50 | Outpatient (AMB) | payer MEDICARE, SELFPAY ==
--- NOTE | 2023-07-25 14:48 | A.OFFVIS_ITS ---
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 Required: No Accompanied by: Self / Same As Patient Allergies metformin Adverse Reaction (Intermediate, Verified 07/14/23 15:32) abdominal bloating HPI Comprehensive Diabetes Asmnt Most Recent Diabetes Results: Microalb/Creat Ratio 14.3 ug/mg cr 12/19/22 Cholesterol 159 mg/dL 12/19/22 HDL Cholesterol 37 mg/dL 12/19/22 Triglycerides 142 mg/dL 12/19/22 Creatinine 0.92 mg/dL (0.5-1.4) 12/19/22 Blood Urea Nitrogen 21 mg/dL (9-16) H 12/19/22 Sodium 142 mmol/L (135-145) 12/19/22 Potassium 4.9 mmol/L (3.3-5.1) 12/19/22 Chloride 107 mmol/L (96-108) 12/19/22 Carbon Dioxide 28 mmol/L (22-29) 12/19/22 Calcium 10.9 mg/dL (8.4-10.2) H 12/19/22 AST 15 U/L (5-31) 12/19/22 ALT 9 U/L (0-31) 12/19/22 Total Protein 7.2 g/dL (6.5-8.0) 12/19/22 Albumin 4.0 g/dL (3.5-5.0) 12/19/22 [facility] Medical History (Updated 07/14/23 @ 15:37 by Feliberto Marx MD) Endogenous depression Class 1 obesity with body mass index (BMI) of 33.0 to 33.9 in adult Constipation by delayed colonic transit Essential (primary) hypertension Diabetes mellitus Surgical History No history of previous surgery Family History Mother No problems noted. Father No problems noted. Family/Other Mental health disorder Social History (Updated 07/12/23 @ 09:47 by TORRI Arias) Housing: House Alcohol intake: never Patient Tobacco Use Status: Current everyday Tobacco user Tobacco use type: Cigarette Cigarettes Per Day: 6 e-Cigarette/Vaping Use: Never Used Second Hand Smoke Exposure: Yes service: No Current occupational status: retired Cognitive needs: No Hearing needs: No Vision needs: Yes (adri) Assessment & Plan Assessment & Plan (1) Diabetes mellitus: Code(s): E11.9 - Type 2 diabetes mellitus without complications Plan: Learning objectives: The patient was provided with verbal and written education on the following topics as outlined below. Assess patient education level/literacy/barriers Patient questions/concerns, patient reports that for the past 6 months, she had not been monitoring her glucose, taking her diabetes medication In July 2023 she was seen by her PCP her A1c was 10.7%. Since that appointment she is been working did diligently to improve her glucose levels. She is restarted diabetes medication, , she is restarted her CGM. She has 3 days worth of data all glucose numbers within target levels. Reports she will continue to work hard to improve glucose numbers The patient met all learning objectives and was able to verbalize understanding and provide teach back of education topics discussed . The patient was provided with the opportunity to ask questions and all questions were answered. Topics covered in today?s session included: Medications (If applicable) * Name of medication? * Dosing/administration instructions? * Mechanism of action? * Potential side effects? * Potential adverse reaction and appropriate treatment? * Review onset, peak, duration Assess for concerns re: insurance coverage, cost, barriers to compliance Insulin/Injectables (If applicable) * Storage/care of insulin?? * Injection sites? * Site rotation? * Onset, peak, duration * Drawing up insulin? * Injecting insulin/other injectables? * Sharps disposal Continuous blood glucose monitoring (if applicable) Hypoglycemia and Hyperglycemia * Signs and symptoms? * Causes?? * Treatment? * Preventing hypoglycemia? * When to seek medical attention * Blood glucose targets and how you feel when your blood glucose is in and out of your target ranges. * Monitoring and knowing your A1C. * What can make blood glucose go up and down and preventing high and low blood glucose. * Review of blood sugar targets in expected goal range and outside of expected goal range. * Problem solving and preventing hyper/hypoglycemia. * Sick day management of diabetes. * Using blood sugar results in decision making process in managing diabetes. ?Patient was receptive to information provided and participated in the discussion. Asked?appropriate questions and demonstrated good understanding of the topics discussed.? ? Educational Materials: The patient was provided with the following written educational materials: Target Goal handout Patient Response to instructions: Comprehension of Instructions: good Readiness to make changes:? action How confident they feel about making changes:good Patient Instructions: Patient will follow-up with Diabetes Education nurse on 08/07/2023, to be assisted in changing marie Hicks 2 Coding Level of Care Code Est Pt Level 1 (51118) Diagnoses Diabetes mellitus E11.9
== END 2023-07-25 15:04 | disposition home or self-care (01) ==
PROVIDERS: PCP Internal Medicine; Visit Provider Registered Nurse Diabetes Educator
DX: E11.9 Type 2 diabetes mellitus without complications (principal)

== ENCOUNTER → 2023-07-25 13:50 | Outpatient (BNVA) | payer MEDICARE, SELFPAY | PROVIDERS: PCP Internal Medicine; Visit Provider Registered Nurse Diabetes Educator | DX: E11.9 Type 2 diabetes mellitus without complications (principal) | CPT/HCPCS: 99211 ==

== ENCOUNTER 2023-08-03 09:57 | Outpatient (REF) | payer MEDICARE, SELFPAY ==
[2023-08-03 13:42] LABS: Appearance Urine Turbid; Color Urine Yellow; Glucose Urine UA Negative (Negative); Leukocyte Esterase Urine Moderate (2+) (Negative); Nitrite Urine Positive (Negative); PH >= 9.0 (5.0-9.0); Specific Gravity - Urine 1.025 (1.005-1.025); UMIC TRIGGER UACC YES; Urine Blood Negative (Negative); Urine Ketones Negative (Negative); Urine Protein 30 (1+) mg/dL (Neg-Trace)
[2023-08-03 13:52] LABS: Bacteria Urine 4+ (None Seen); Hyaline Casts Urine 0-2 /LPF (0-2); Other Crystals Urine Present; RBC Urine 0-2 /HPF (0-2); UACC Culture Trigger YES; WBC Urine 0-5 /HPF (0-5)
== END 2023-08-03 09:58 | disposition home or self-care (01) ==
LOC: HO.HMGCLDS 09:57
PROVIDERS: PCP Internal Medicine; Visit Provider Internal Medicine
DX: R39.9 Unspecified symptoms and signs involving the genitourinary system (principal)
CPT/HCPCS: 81001; 87086

== ENCOUNTER 2023-08-07 12:21 | Outpatient (AMB) | payer MEDICARE, SELFPAY ==
--- NOTE | 2023-08-07 13:06 | A.OFFVIS_ITS ---
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 Accompanied by: Self / Same As Patient Allergies metformin Adverse Reaction (Intermediate, Verified 07/14/23 15:32) abdominal bloating HPI Comprehensive Diabetes Asmnt Most Recent Diabetes Results: Hemoglobin A1c 11.1 % 06/28/19 Microalb/Creat Ratio 14.3 ug/mg cr 12/19/22 Cholesterol 159 mg/dL 12/19/22 HDL Cholesterol 37 mg/dL 12/19/22 Triglycerides 142 mg/dL 12/19/22 Creatinine 0.92 mg/dL (0.5-1.4) 12/19/22 Blood Urea Nitrogen 21 mg/dL (9-16) H 12/19/22 Sodium 142 mmol/L (135-145) 12/19/22 Potassium 4.9 mmol/L (3.3-5.1) 12/19/22 Chloride 107 mmol/L (96-108) 12/19/22 Carbon Dioxide 28 mmol/L (22-29) 12/19/22 Calcium 10.9 mg/dL (8.4-10.2) H 12/19/22 AST 15 U/L (5-31) 12/19/22 ALT 9 U/L (0-31) 12/19/22 Total Protein 7.2 g/dL (6.5-8.0) 12/19/22 Albumin 4.0 g/dL (3.5-5.0) 12/19/22 [facility] Medical History (Updated 07/14/23 @ 15:37 by Feliberto Marx MD) Endogenous depression Class 1 obesity with body mass index (BMI) of 33.0 to 33.9 in adult Constipation by delayed colonic transit Essential (primary) hypertension Diabetes mellitus Surgical History No history of previous surgery Family History Mother No problems noted. Father No problems noted. Family/Other Mental health disorder Social History (Updated 07/12/23 @ 09:47 by TORRI Arias) Housing: House Alcohol intake: never Patient Tobacco Use Status: Current everyday Tobacco user Tobacco use type: Cigarette Cigarettes Per Day: 6 e-Cigarette/Vaping Use: Never Used Second Hand Smoke Exposure: Yes service: No Current occupational status: retired Cognitive needs: No Hearing needs: No Vision needs: Yes (glass) Assessment & Plan Assessment & Plan (1) Diabetes mellitus: Code(s): E11.9 - Type 2 diabetes mellitus without complications Plan: Learning objectives: The patient was provided with verbal and written education on the following topics as outlined below. Assess patient education level/literacy/barriers Patient questions/concerns, patient is using freestyle Fabiola 2 to test glucose levels Reviewed at today's visit how to set up an insert Fabiola 2 sensor Average glucose for the past 14 days 121 mg/dL Patient has been with in target range 100% of the time Patient did complain, that she has been experiencing both constipation and diarrhea since starting metformin, also discussed with patient that these can be side effects from Trulicity 0.75 mg weekly as well Patient would like to try metformin XR, message sent to patient's PCP regarding new prescription for metformin XR The patient met all learning objectives and was able to verbalize understanding and provide teach back of education topics discussed . The patient was provided with the opportunity to ask questions and all questions were answered. Topics covered in today?s session included: Medications (If applicable) * Name of medication? * Dosing/administration instructions? * Mechanism of action? * Potential side effects? * Potential adverse reaction and appropriate treatment? * Review onset, peak, duration Assess for concerns re: insurance coverage, cost, barriers to compliance Insulin/Injectables (If applicable) * Storage/care of insulin?? * Injection sites? * Site rotation? * Onset, peak, duration * Drawing up insulin? * Injecting insulin/other injectables? * Sharps disposal Continuous blood glucose monitoring (if applicable) Hypoglycemia and Hyperglycemia * Signs and symptoms? * Causes?? * Treatment? * Preventing hypoglycemia? * When to seek medical attention * Blood glucose targets and how you feel when your blood glucose is in and out of your target ranges. * Monitoring and knowing your A1C. * What can make blood glucose go up and down and preventing high and low blood glucose. * Review of blood sugar targets in expected goal range and outside of expected goal range. * Problem solving and preventing hyper/hypoglycemia. * Sick day management of diabetes. * Using blood sugar results in decision making process in managing diabetes. ?Patient was receptive to information provided and participated in the discussion. Asked?appropriate questions and demonstrated good understanding of the topics discussed.? ? Educational Materials: The patient was provided with the following written educational materials: Target Goal handout New Smart Goal: Increase physical activity to 10-15 minutes daily Patient Response to instructions: Comprehension of Instructions: Good Readiness to make changes:? Action How confident they feel about making changes: Positive Patient Instructions: Follow-up with Diabetes Education nurse in 3 months after next A1c If you have any questions between now and next visit please contact Diabetes Education nurse Coding Level of Care Code Est Pt Level 1 (45076) Diagnoses Diabetes mellitus E11.9
== END 2023-08-07 13:13 | disposition home or self-care (01) ==
PROVIDERS: PCP Internal Medicine; Visit Provider Registered Nurse Diabetes Educator
DX: E11.9 Type 2 diabetes mellitus without complications (principal)

== ENCOUNTER → 2023-08-07 12:21 | Outpatient (BNVA) | payer MEDICARE, SELFPAY | PROVIDERS: PCP Internal Medicine; Visit Provider Registered Nurse Diabetes Educator | DX: E11.9 Type 2 diabetes mellitus without complications (principal) | CPT/HCPCS: 99211 ==

== ENCOUNTER 2023-08-24 09:46 | Outpatient (AMB) | payer OTHER, MEDICARE, SELFPAY ==
[2023-08-24 09:47] VITALS: BP 140/90; PULSE 93; TEMP 36.7; O2SAT 98; BMI 33.6
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
== END 2023-08-24 10:35 | disposition home or self-care (01) ==
PROVIDERS: PCP Internal Medicine; Visit Provider Nurse Practitioner Family
DX: M25.511 Pain in right shoulder (principal)
CPT/HCPCS: 99213

== ENCOUNTER 2023-08-24 10:06 | Outpatient (REF) | payer OTHER, MEDICARE, SELFPAY ==
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
== END 2023-08-24 10:07 | disposition home or self-care (01) ==
LOC: HO.HMGCX 10:06
PROVIDERS: PCP Internal Medicine; Visit Provider Nurse Practitioner Family
DX: M25.511 Pain in right shoulder (principal)
CPT/HCPCS: 73030

== ENCOUNTER 2023-09-05 08:03 | Outpatient (AMB) | payer OTHER, MEDICARE, SELFPAY ==
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
[2023-09-05 08:15] VITALS: BP 122/70; PULSE 78; TEMP 36.7; O2SAT 98; BMI 33.6
== END 2023-09-05 08:52 | disposition home or self-care (01) ==
PROVIDERS: PCP Internal Medicine; Visit Provider Internal Medicine
DX: S43.401A Unspecified sprain of right shoulder joint, initial encounter (principal)
CPT/HCPCS: 99213

== ENCOUNTER 2023-10-23 08:11 | Outpatient (REF) | payer MEDICARE, SELFPAY ==
[2023-10-23 10:37] LABS: Appearance Urine Cloudy; Color Urine Yellow; Glucose Urine UA Negative (Negative); Leukocyte Esterase Urine Trace (Negative); Nitrite Urine Negative (Negative); UMIC TRIGGER UACC YES; Urine Blood Negative (Negative); Urine Ketones Negative (Negative); Urine Protein Negative (Neg-Trace)
[2023-10-23 10:39] LABS: Hematocrit 40.6 % (37.0-47.0); Mean Corpuscular HGB Conc 34.5 g/dl (31.0-35.0); Mean Corpuscular Hemoglobin 30.4 pg (27.0-33.0); Mean Corpuscular Volume 88.1 fL (80.0-98.0); Mean Platelet Volume 11.3 fL (9.4-12.3); Platelet Count 290 X10*3/uL (160-400); Red Blood Count 4.61 X10*6/uL (4.20-5.50); Red Cell Distribution Width 13.6 % (11.0-16.0); White Blood Count 12.5 X10*3/uL (4.8-10.8)
[2023-10-23 10:41] LABS: Bacteria Urine 4+ (None Seen); RBC Urine 0-2 /HPF (0-2); UACC Culture Trigger YES
[2023-10-23 11:07] LABS: Alanine Aminotransferase 15 U/L (0-31); Albumin Level 4.3 g/dL (3.5-5.0); Alkaline Phosphatase 68 U/L (39-117); Aspartate Amino Transferase 20 U/L (5-31); Bilirubin Direct 0.2 mg/dL (0.0-0.5); Bilirubin Total 0.5 mg/dL (0.0-1.0); Cholesterol 155 mg/dL (<200); HDL Cholesterol 35 mg/dL (>40); LDL Cholesterol Calculated 81 mg/dL (<100); Triglycerides 195 mg/dL (<150)
== END 2023-10-23 08:12 | disposition home or self-care (01) ==
LOC: HO.HMGCLDS 08:11
PROVIDERS: PCP Internal Medicine; Visit Provider Internal Medicine
DX: F33.2 Major depressive disorder, recurrent severe without psychotic features (principal); R39.9 Unspecified symptoms and signs involving the genitourinary system
CPT/HCPCS: 36415; 80061; 80076; 81001; 84443; 85027; 87086

== ENCOUNTER 2023-10-25 14:35 | Outpatient (AMB) | payer MEDICARE, SELFPAY ==
--- NOTE | 2023-10-25 14:44 | A.OFFPC_ITS ---
Vital Signs 10/25/23 14:46 Height 5 ft 4 in Weight 188 lb 2 oz BMI 32.3 BP 126/76 Blood Pressure Location Lt brachial Position Sitting Pulse 102 H Pulse Source Pulse Oximeter Pulse Oximetry (%) 92 Oxygen Delivery Method Room Air Intake Visit Reasons: 3 month f/u Intake Note: Patient is here to follow up on HTN, DM. 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 Since last office visit patient has been seeing physical therapy for her right shoulder discomfort. The range of motion has significantly improved and the intensity of pain has decreased. She continues to do the exercises at home. Patient has become more compliant with medications. Her blood sugars are consistently less than 150. Able to exercise and do all activities of daily living. Patient has yet to schedule her screening colonoscopy. [facility] Medical History Endogenous depression Class 1 obesity with body mass index (BMI) of 33.0 to 33.9 in adult Constipation by delayed colonic transit Essential (primary) hypertension Diabetes mellitus Surgical History No history of previous surgery Family History Mother No problems noted. Father No problems noted. Family/Other Mental health disorder Social History Housing: House Alcohol intake: never Patient Tobacco Use Status: Current everyday Tobacco user Tobacco use type: Cigarette Cigarettes Per Day: 3 e-Cigarette/Vaping Use: Never Used Second Hand Smoke Exposure: Yes service: No Current occupational status: retired Cognitive needs: No Hearing needs: No Vision needs: Yes (glass) Questionnaire Thrive Questionnaire Date Thrive assessed: 07/12/23 SUKHWINDER-7 AMB Questionnaire SUKHWINDER-7 Date SUKHWINDER - 7 assessed: 07/12/23 Source: Developed by Drs. Ravin Miles, Christen Adhikari, Ben Fajardo and colleagues, with an educational betty from [employer]. Physical exam (Primary Care) Vital Signs: Last Vital Signs Pulse 102 H 10/25/23 14:46 BP 126/76 10/25/23 14:46 Pulse Ox 92 10/25/23 14:46 Oxygen Delivery Method Room Air 10/25/23 14:46 BMI result Body Mass Index 32.3 Tobacco/Smoking Status: Tobacco use Status Tobacco use date assessed 10/25/23 10/25/23 14:57 Patient Tobacco Use Status Current everyday Tobacco 10/25/23 14:57 Tobacco use type Cigarette 10/25/23 14:57 e-Cigarette/Vaping Use Never Used 10/25/23 14:57 Thrive Assessment: Date of Thrive Assessment Date Thrive assessed 07/12/23 10/25/23 14:57 Const General: cooperative and healthy appearing Nutritional Appearance: well nourished Orientation/consciousness: patient oriented x3 Limitations: no limitations HENMT Head: Yes normal to inspection Eyes General: appearance normal, both eyes and all related structures Neck Neck: Yes normal visual inspection Chest Chest palpation & inspection: normal palpation of entire chest wall Resp Effort & Inspection: normal respiratory effort Neuro General: patient oriented x3 Results AMB Hemoglobin A1c AMB Hemoglobin A1c 7.1 % Last Edit by TORRI Arias on 10/25/23 14:57 Results Reviewed Results Reviewed: Laboratory Last Values Hgb A1c (Clinic) 7.1 % (4.0-6.0) H 10/25/23 14:44 Assessment and Plan Assessment & Plan (1) Diabetes mellitus: Code(s): E11.9 - Type 2 diabetes mellitus without complications Plan: A1c has improved from 11-7.1. Patient was congratulated on being compliant with her diet and exercise. Advised her to continue her exercises. Orders: Orders AMB Hemoglobin A1c Today E11.9 - Type 2 diabetes mellitus without complications Coding Level of Care Code Est Pt Level 4 (20023) Diagnoses Diabetes mellitus E11.9
[2023-10-25 14:46] VITALS: BP 126/76; PULSE 102; O2SAT 92; BMI 32.3
== END 2023-10-25 16:10 | disposition home or self-care (01) ==
LOC: HO.HMGH 14:42
PROVIDERS: PCP Internal Medicine; Visit Provider Internal Medicine
DX: E11.9 Type 2 diabetes mellitus without complications (principal)
CPT/HCPCS: 83036; 99214

== ENCOUNTER 2023-12-12 08:00 | Outpatient (RCR) | payer OTHER, MEDICARE, SELFPAY ==
--- NOTE | 2023-09-21 11:42 | MHC.PT.EP ---
[facility] [place] [facility] [place] Office [place] Office [address] Rodas [address] [phone] F: [phone] F: [phone] F: [phone] F: [phone] Physical Therapy Plan of Care Date of Evaluation: 09/21/23 Date of Surgery: Diagnosis: Sprain of R shoulder Assessment: Patient is a 73 year old R handed female who presents with s/s consistent with R shoulder pain. She does not work but likes to stay active and healthy. Patient past medical history includes DM and HTN. Current impairments include pain, posture, ROM, strength, activity tolerance and functional mobility. Functional limitations include decreased ability to reach, dress, sleep, lift, carry, push and pull. Patient is motivated with good rehab potential. Skilled PT will address impairments and functional limitations in order to achieve goals. Frequency and Duration: The patient will be seen 2x/week for 5 weeks Short Term Goals: I with HEP - 2 weeks AROM flexion 120, ER 45 - 3 weeks Max pain with ADLs 4/10 - 3 weeks Fpc Goals: SPADI 40/130 or better - 5 weeks AROM flexion/scaption to 140, ER to 55 - 5 weeks Strength 4/5 grossly - 5 weeks Treatment Plan: Modalities to reduce pain, spasms and effusion. Manual therapy to restore motion and function. Therapeutic exercise to improve strength and flexibility. Neuromuscular re-education for posture and balance. Therapeutic activities to return to functional activities of daily living. Electronically signed by: Prakash Palmer, PT Please sign and return to therapist. Thank you for your referral.
--- NOTE | 2024-03-14 09:57 | MHC.PT.DC ---
[facility] [place] [facility] [place] [facility] [place] [facility] [address] [place] Rodas [address] [phone] F: [phone] F: [phone] F: [phone] F: [phone] Physical Therapy Discharge Report Diagnosis: Sprain of R shoulder Date of Surgery: Date of Evaluation: 09/21/23 Date of Discharge: 01/04/24 Treatments to Date: 19 Cancellations to Date: No Shows to Date: Discharge Status: Achieved Goals Independent with HEP Discharge Summary: 12/11; Pt sh B equal. Pt fatigues quickly. Pt has HEP and is DC with program. 11/29; Pt needs coaxing to perform end of reps. Discussed 1 x week x 2 week and DC with HEP. 11/28/23: pt limits self at times. required encouragement to progress/accept progression. 11/23/23: pt progressing well. reduced tightness and reduced pain. improved ROM and progressing overall. educated on importance of HEP. 11/20; Pt needed v/c with ext rot was substituting motion with elbow ext. 11/17/23: pt having a difficult time progressing with strength. we will continue to pursue this and plan to transition to HEP. 11/15/23: we resumed after pt was sick for a week. held on progression but will progress overhead activities next visit. 11/03/23: pt progressing well with skilled PT. strength and ROM improvements resulting in functional gains including reaching into fridge and cupboards. 10/27/23: pt has been feeling better overall with skilled PT. strength progress is slow as pt self limits at times. 10/24/23: pt progressing well with skilled PT. no adverse reactions from above. continue to progress as tolerated. 10/19/23: pt has been progressing well with ROM and strength. tolerance is improving. continue to progress strength as tolerated. 10/17/23: ROM progressing. motivated to continue to improve. progress strength and ROM NV. 10/12/23: pt missed last appt due to illness and has increased soreness. continue to progress as tolerated. 10/05/23: pt progressing well. no adverse reactions. improved ROM and compliant with HEP. 10/03/23: pt is easily distracted and needs redirected at times. we will continue to address strength and ROM as tolerated. 09/28/23: pt has been feeilng better overall. ROM improving and strength progression underway. 09/26/23: pt progressing well with skilled PT. added ROM intervention. no adverse reactions. compliant with HEP thus far. Patient is a 73 year old R handed female who presents with s/s consistent with R shoulder pain. She does not work but likes to stay active and healthy. Patient past medical history includes DM and HTN. Current impairments include pain, posture, ROM, strength, activity tolerance and functional mobility. Functional limitations include decreased ability to reach, dress, sleep, lift, carry, push and pull. Patient is motivated with good rehab potential. Skilled PT will address impairments and functional limitations in order to achieve goals. Electronically signed by: Prakash Palmer, PT Please sign and return to therapist. Thank you for your referral.
== END 2024-03-14 09:57 | disposition home or self-care (01) ==
LOC: HO.PTCHIC 08:00
PROVIDERS: PCP Internal Medicine; Visit Provider Internal Medicine
DX: S43.401D Unspecified sprain of right shoulder joint, subsequent encounter (principal)
CPT/HCPCS: 97110; 97162

== ENCOUNTER 2024-01-03 09:55 | Outpatient (AMB) | payer MEDICARE, SELFPAY ==
--- NOTE | 2024-01-03 12:34 | MHC.AMDMED ---
Intake Intake Visit Reasons: Type 2 DM Allergies sulfamethoxazole [From Bactrim] Allergy (Mild, Verified 10/25/23 14:45) hives trimethoprim [From Bactrim] Allergy (Mild, Verified 10/25/23 14:45) hives metformin Adverse Reaction (Intermediate, Verified 10/25/23 14:45) abdominal bloating HPI Comprehensive Diabetes Asmnt Most Recent Diabetes Results: Hemoglobin A1c 11.1 % 06/28/19 Microalb/Creat Ratio 14.3 ug/mg cr 12/19/22 Cholesterol 155 mg/dL (<200) 10/23/23 HDL Cholesterol 35 mg/dL (>40) L 10/23/23 Triglycerides 195 mg/dL (<150) H 10/23/23 Creatinine 0.92 mg/dL (0.5-1.4) 12/19/22 Blood Urea Nitrogen 21 mg/dL (9-16) H 12/19/22 Sodium 142 mmol/L (135-145) 12/19/22 Potassium 4.9 mmol/L (3.3-5.1) 12/19/22 Chloride 107 mmol/L (96-108) 12/19/22 Carbon Dioxide 28 mmol/L (22-29) 12/19/22 Calcium 10.9 mg/dL (8.4-10.2) H 12/19/22 AST 20 U/L (5-31) 10/23/23 ALT 15 U/L (0-31) 10/23/23 Total Protein 8.0 g/dL (6.5-8.0) 10/23/23 Albumin 4.3 g/dL (3.5-5.0) 10/23/23 [facility] Medical History Endogenous depression Class 1 obesity with body mass index (BMI) of 33.0 to 33.9 in adult Constipation by delayed colonic transit Essential (primary) hypertension Diabetes mellitus Surgical History No history of previous surgery Family History Mother No problems noted. Father No problems noted. Family/Other Mental health disorder Social History Housing: House Alcohol intake: never Patient Tobacco Use Status: Current everyday Tobacco user Tobacco use type: Cigarette Cigarettes Per Day: 3 e-Cigarette/Vaping Use: Never Used Second Hand Smoke Exposure: Yes service: No Current occupational status: retired Cognitive needs: No Hearing needs: No Vision needs: Yes (glass) Assessment & Plan Assessment & Plan (1) Diabetes mellitus: Code(s): E11.9 - Type 2 diabetes mellitus without complications Plan: Class 1 DIABETES: CLASS? Your Journey with Diabetes ? Pre and Post class survey Your Journey with Diabetes ? 1=I needs full instruction?? 2= I Need Some Review? 3= I Understand Topics?? Before Class After Class What is diabetes? Can you define in your own words Blood glucose within the target range The potential long-term complications of diabetes Reduce the risk of long-term complications by keeping your blood glucose on target Knowing your ABCs Identifying Support Network Pt did not return Survey Patient was education on the prevention of and monitoring of potential complications of diabetes. Topics covered in today?s session included: . Definition of types of Diabetes ? Natural course of diabetes. ? Detecting and prevention of chronic complications. ? Knowing ABC's of diabetes management and reducing risk for cardiovascular complications. ? Reviewed support network and services. Patient was supplied with ABC and Screening checklist Patient was receptive to information provided and participated in the group discussion. Patient asked?appropriate questions and demonstrated good understanding of the topics discussed.? Patient found goals realistic and agreed to DM plan.? Over the course of DSMT program patient will identify the following goals relating to the ADCES 7 Healthy Behavior Worksheet: Patient was educated on diabetes care and skills according to the Standards of Care established by the [place] [employer] Portions of this note were created using voice recognition software, please excuse any words or phrases that may have been misinterpreted. Coding Level of Care Code Est Pt Level 1 (72407) Diagnoses Diabetes mellitus E11.9
== END 2024-01-03 12:56 | disposition home or self-care (01) ==
PROVIDERS: PCP Internal Medicine; Visit Provider Registered Nurse Diabetes Educator
DX: E11.9 Type 2 diabetes mellitus without complications (principal)

== ENCOUNTER → 2024-01-03 09:55 | Outpatient (BNVA) | payer MEDICARE, SELFPAY | PROVIDERS: PCP Internal Medicine; Visit Provider Registered Nurse Diabetes Educator | DX: E11.9 Type 2 diabetes mellitus without complications (principal) | CPT/HCPCS: 99211 ==

== ENCOUNTER 2024-01-10 09:45 | Outpatient (AMB) | payer MEDICARE, SELFPAY ==
--- NOTE | 2024-01-10 13:35 | MHC.AMDMED ---
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 Automatic Required: No Accompanied by: Self / Same As Patient Allergies sulfamethoxazole [From Bactrim] Allergy (Mild, Verified 10/25/23 14:45) hives trimethoprim [From Bactrim] Allergy (Mild, Verified 10/25/23 14:45) hives metformin Adverse Reaction (Intermediate, Verified 10/25/23 14:45) abdominal bloating HPI Comprehensive Diabetes Asmnt Most Recent Diabetes Results: Cholesterol 155 mg/dL (<200) 10/23/23 HDL Cholesterol 35 mg/dL (>40) L 10/23/23 Triglycerides 195 mg/dL (<150) H 10/23/23 AST 20 U/L (5-31) 10/23/23 ALT 15 U/L (0-31) 10/23/23 Total Protein 8.0 g/dL (6.5-8.0) 10/23/23 Albumin 4.3 g/dL (3.5-5.0) 10/23/23 PFSH Medical History Endogenous depression Class 1 obesity with body mass index (BMI) of 33.0 to 33.9 in adult Constipation by delayed colonic transit Essential (primary) hypertension Diabetes mellitus Surgical History No history of previous surgery Family History Mother No problems noted. Father No problems noted. Family/Other Mental health disorder Social History Housing: House Alcohol intake: never Patient Tobacco Use Status: Current everyday Tobacco user Tobacco use type: Cigarette Cigarettes Per Day: 3 e-Cigarette/Vaping Use: Never Used Second Hand Smoke Exposure: Yes service: No Current occupational status: retired Cognitive needs: No Hearing needs: No Vision needs: Yes (glass) Assessment & Plan Assessment & Plan (1) Diabetes mellitus: Code(s): E11.9 - Type 2 diabetes mellitus without complications Plan: Class 2 DIABETES: CLASS? Diabetes and Healthy Eating Pre and Post class survey Diabetes and Healthy Eating 1=I needs full instruction?? 2= I Need Some Review? 3= I Understand Topics?? Before Class After Class Must eat Healthy The relationship between your blood glucose in the food you eat 3 protein Nutrients that make up food 3 yes How you eat, portion size, and when you eat can affect your blood glucose 3 plan daily Healthy eating and meal planning strategies 3 mood How you feel can have an influence on choices about the food 3 how to select and implement Smart Goal 2 Patient was education on the prevention of and monitoring of potential complications of diabetes. Topics covered in today?s session included: Feelings about food Food basics and what you eat which include: Description of Nutrients Food groups How much you eat, strategies for eating less When you eat, strategies for healthy eating Understanding food labels Food challenges and planning Going for your goals and your support network Pt was given Healthy Plate Handout, which includes carbohydrate list. Recommended using ADA Diabetes Foodhub for meal planning Patient was receptive to information provided and participated in the group discussion. Patient asked?appropriate questions and demonstrated good understanding of the topics discussed.? Patient found goals realistic and agreed to DM plan.? Over the course of DSMT program patient will identify the following goals relating to the ADCES 7 Healthy Behavior Worksheet Reviewed Healthy Behavior goal: Patient did not return with smart goal. Her goal for next visit set smart goal Smart Goal Assessment:? Pt met goal 100% Pt met goal 75% Pt met goal 50% Pt met goal 25% Pt met goal less than 25% Patient was educated on diabetes care and skills according to the Standards of Care established by the [place] [employer] Portions of this note were created using voice recognition software, please excuse any words or phrases that may have been misinterpreted. Coding Level of Care Code Est Pt Level 1 (33766) Diagnoses Diabetes mellitus E11.9
== END 2024-01-10 11:51 | disposition home or self-care (01) ==
PROVIDERS: PCP Internal Medicine; Visit Provider Registered Nurse Diabetes Educator
DX: E11.9 Type 2 diabetes mellitus without complications (principal)

== ENCOUNTER → 2024-01-10 09:45 | Outpatient (BNVA) | payer MEDICARE, SELFPAY | PROVIDERS: PCP Internal Medicine; Visit Provider Registered Nurse Diabetes Educator | DX: E11.9 Type 2 diabetes mellitus without complications (principal) | CPT/HCPCS: 99211 ==

== ENCOUNTER 2024-02-08 09:55 | Outpatient (AMB) | payer MEDICARE, SELFPAY ==
--- NOTE | 2024-02-08 09:56 | A.OFFVIS_ITS ---
Intake Intake Visit Reasons: DM Allergies sulfamethoxazole [From Bactrim] Allergy (Mild, Verified 10/25/23 14:45) hives trimethoprim [From Bactrim] Allergy (Mild, Verified 10/25/23 14:45) hives metformin Adverse Reaction (Intermediate, Verified 10/25/23 14:45) abdominal bloating HPI Comprehensive Diabetes Asmnt Most Recent Diabetes Results: Hemoglobin A1c 11.1 % 06/28/19 Microalb/Creat Ratio 14.3 ug/mg cr 12/19/22 Cholesterol 155 mg/dL (<200) 10/23/23 HDL Cholesterol 35 mg/dL (>40) L 10/23/23 Triglycerides 195 mg/dL (<150) H 10/23/23 Creatinine 0.92 mg/dL (0.5-1.4) 12/19/22 Blood Urea Nitrogen 21 mg/dL (9-16) H 12/19/22 Sodium 142 mmol/L (135-145) 12/19/22 Potassium 4.9 mmol/L (3.3-5.1) 12/19/22 Chloride 107 mmol/L (96-108) 12/19/22 Carbon Dioxide 28 mmol/L (22-29) 12/19/22 Calcium 10.9 mg/dL (8.4-10.2) H 12/19/22 AST 20 U/L (5-31) 10/23/23 ALT 15 U/L (0-31) 10/23/23 Total Protein 8.0 g/dL (6.5-8.0) 10/23/23 Albumin 4.3 g/dL (3.5-5.0) 10/23/23 [facility] Medical History Endogenous depression Class 1 obesity with body mass index (BMI) of 33.0 to 33.9 in adult Constipation by delayed colonic transit Essential (primary) hypertension Diabetes mellitus Surgical History No history of previous surgery Family History Mother No problems noted. Father No problems noted. Family/Other Mental health disorder Social History Housing: House Alcohol intake: never Patient Tobacco Use Status: Current everyday Tobacco user Tobacco use type: Cigarette Cigarettes Per Day: 3 e-Cigarette/Vaping Use: Never Used Second Hand Smoke Exposure: Yes service: No Current occupational status: retired Cognitive needs: No Hearing needs: No Vision needs: Yes (glass) Assessment & Plan Assessment & Plan (1) Diabetes mellitus: Code(s): E11.9 - Type 2 diabetes mellitus without complications Plan: DIABETES CLASS [address] On [address] to Better Managing My Diabetes Pre and Post class survey. 1= I know this? 2= I need more instruction? 3= I need a full review Before Class After Class 1 What diabetes is and some of the most common myths about diabetes 3 3 The feelings you can have about diabetes 3 2 Sick Day and Emergency Planning 3 1 Managing diabetes with healthy eating, physical activity, taking medications 3 1 How physical activity effects glucose levels 3 2 The importance of having a plan And engaging a support network and health care team 3 ?Topics covered in today?s session included: Emotional Health * Overview of diabetes, what it is, feelings about having it, and ways to manage it. * ?Myths & facts about diabetes * Blood sugar monitoring and expected blood sugar goals. * Management of diabetes with healthy eating, physical activity, and medications. Sick Day Guidelines * Fluids/meal plan * Medication/insulin * Monitor blood glucose * When to contact your doctor * Emergency planning Exercise * Medical clearance * Effect of exercise on blood sugar * Start slowly and gradually increase pace/duration over time * Goal amount of exercise * Precautions * Checking blood glucose/have a source of carbs with you The patient was provided with the following written educational materials: On-going Support hand out, and Emergency checklist Patient was receptive to information provided and participated in the discussion. Patient asked?appropriate questions and demonstrated good understanding of the topics discussed.? Patient completed the four diabetes education classes, patient's referring provider has access to all pertinent documentation related to patient's participation through EMR Patient A1c prior to Diabetes Education program:10.2% Patient's A1c post Diabetes Education program:Pt has upcoming appt on 02/15/24 for A1c ?Reviewed patient DSMT self-mgmt and ongoing support option Smart Goal Assessment:? Pt bought Goal Sheet to today's class Pt met goal more than 100% New Smart Goal: Pt will add 5 min of walking for the next 4 weeks Portions of this note were created using voice recognition software, please excuse any words or phrases that may have been misinterpreted. Patient Instructions: People with diabetes face a higher risk for complications. In general, people with diabetes are more likely to experience severe symptoms and complications when infected with a virus. The problem people with diabetes face is primarily a problem of worse outcomes COVID-19 is different from the seasonal flu. COVID-19 is proving to be a more serious illness than seasonal flu in everyone, including people with diabetes. All of the standard precautions to avoid infection that have been widely reported are even more important when dealing with this virus. Recommended safety precautions are the same as for flu, such as frequent hand washing and covering coughs and sneezes with a tissue?or your elbow. Before you get sick,?make a plan: Gather your supplies: ? Phone numbers of your doctors and healthcare team, your pharmacy and your insurance provider ? List of medications and doses (including vitamins and supplements) ? Simple carbs like regular soda, honey, jam, Jell-O, hard candies or popsicles to help keep your blood sugar up if you are at risk for lows and too ill to eat ? If a state of emergency is declared, get extra refills on your prescriptions so you do not have to leave the house ?? If you can't get to the pharmacy, find out about having your medications delivered ? Always have enough insulin for the week ahead, in case you get sick or cannot refill ? Extra supplies like rubbing alcohol and soap to wash your hands ? Glucagon and ketone strips, in case of lows and highs ? Have enough household items and groceries on hand so that you will be prepared to stay at home for a period of time Talk to your health care team about the following: ? When to call your doctor's office (for ketones, changes in food intake, medication adjustments, etc.) ? How often to check your blood sugar ? When to check for ketones ? Medications you should use for colds, flu, virus, and infections ? Any changes to your diabetes medications when you are sick Take everyday precautions: ? Avoid close contact with people who are sick ? Take preventive actions: ??? Clean your hands often Wash your hands often with soap and water for at least 20 seconds, especially after blowing your nose, coughing, or sneezing, or having been in a public place. ?? If soap and water are not available, use a hand residential fee appraiser that contains at least 60% alcohol. To the extent possible, avoid touching high-touch surfaces in public places?elevator buttons, door handles, handrails, handshaking with people, etc. Use a tissue or your sleeve to cover your hand or finger if you must touch something. Wash your hands after touching surfaces in public places. ? Avoid touching your face, nose, eyes, etc. Clean and disinfect your home to remove germs: practice routine cleaning of frequently touched surfaces (for example: tables, doorknobs, light switches, handles, desks, toilets, faucets, sinks & cell phones) Avoid crowds, especially in poorly ventilated spaces. Your risk of exposure to respiratory viruses like COVID-19 may increase in crowded, closed-in settings with little air circulation if there are people in the crowd who are sick. Avoid all non-essential travel including plane trips, and especially avoid embarking on cruise ships. Watch for emergency warning signs: If you develop emergency warning signs get medical attention?immediately. In adults, emergency warning signs include: ? Difficulty breathing or shortness of breath ? Persistent pain or pressure in the chest ? New confusion or inability to arouse ? Bluish lips or face If you do get sick, know what to do: Here are some common tips, which may vary for each person: ? Drink lots of fluids. If you're having trouble keeping water down, have small sips every 15 minutes or so throughout the day to avoid dehydration. ? If you are experiencing a low (blood sugar below 70 mg/dl or your target range), eat 15 grams of simple carbs that are easy to digest like honey, jam, J ell-O, hard candy, popsicles, juice or regular soda, and re-check your blood sugar in 15 minutes to make sure your levels are rising. Check your blood sugar extra times throughout the day and night (generally, every 2-3 hours; if using a CGM, monitor frequently). ? If your blood sugar has registered high (BG greater than 240mg/dl) more than 2 times in a row ? Call your doctor's office immediately, if you have medium or large ketones (and if instructed to with trace or small ketones). ? Wash your hands and clean your injection/infusion and finger-stick sites with soap and water or rubbing alcohol. Why do blood glucose values go up when I am sick? Your body is under stress when you are sick. Hormones that are released to help fight the illness can also raise your glucose levels. Your body becomes less sensitive to your insulin too, so you need more to have the same effect compared to when you are well. What should I always keep on hand to be prepared for a sick day? Glucose testing kit and strips (more than you think you will need) or CGM sensors ? Ketone testing supplies, either urine or special test strips for fingers tick testing with specific meter (even if you feel you never get sick because the level of ketones lets you and your team know how severely your diabetes is being affected by your illness) ? Plenty of water or sugar-free beverages ? Plenty of all your types of insulin What should I do when I am sick? Continue to take your insulin even if you are not eating much. Take your long acting insulin or continue your basal insulin if you are on an insulin p ump. ? Check your blood glucose values every 3-4 hours. If you have a continuous glucose monitor, watch for trends and make sure your correctional insulin is working. ? Check for ketones even if your blood glucose values are not high. Call your diabetes team if your ketones are moderate or high. When you are sick, they can be high even when your glucose values are within your target range. ? Stay well hydrated, drinking fluid every hour ? tea, water, diet soda, broth. ? Make sure you are also eating some carbohydrates When should I call for help? You have been sick or had a fever for a few days and are not getting better. ? You are vomiting or have diarrhea for more than 6 hours. ? You have moderate to large ketones even if your glucose is not high. ? Your blood glucose values stay above 240 mg/dl even when you are giving extra insulin. You are not sure what to do When should I get help right away? Coding Level of Care Code Est Pt Level 1 (75591) Diagnoses Diabetes mellitus E11.9
== END 2024-02-08 13:14 | disposition home or self-care (01) ==
PROVIDERS: PCP Internal Medicine; Visit Provider Registered Nurse Diabetes Educator
DX: E11.9 Type 2 diabetes mellitus without complications (principal)

== ENCOUNTER → 2024-02-08 09:55 | Outpatient (BNVA) | payer MEDICARE, SELFPAY | PROVIDERS: PCP Internal Medicine; Visit Provider Registered Nurse Diabetes Educator | DX: E11.9 Type 2 diabetes mellitus without complications (principal); Z71.89 Other specified counseling | CPT/HCPCS: 99211 ==

== ENCOUNTER 2024-02-15 10:18 | Outpatient (AMB) | payer MEDICARE, SELFPAY ==
--- NOTE | 2024-02-15 10:25 | A.OFFPC_ITS ---
Vital Signs 02/15/24 10:26 Height 5 ft 4 in Weight 182 lb 4 oz BMI 31.3 BP 120/70 Blood Pressure Location Rt brachial Position Sitting Pulse 107 H Pulse Source Pulse Oximeter Pulse Oximetry (%) 95 Oxygen Delivery Method Room Air Intake Visit Reasons: Annual exam Intake Note: Patient is here today for a physical. Concern of depression. Blender Helper Required: No Law Firm Receptionist: Not Required per policy Accompanied by: Self / Same As Patient Allergies sulfamethoxazole [From Bactrim] Allergy (Mild, Verified 02/15/24 13:34) hives trimethoprim [From Bactrim] Allergy (Mild, Verified 02/15/24 13:34) hives metformin Adverse Reaction (Intermediate, Verified 02/15/24 13:34) abdominal bloating Tobacco use date assessed: 02/15/24 Fall risk assessment: No Falls in past year Last assessed Fall Risk: 02/15/24 Dental Screening Dental Screen Date: 07/12/23 HPI Annual exam HPI Details 73-year-old female presents to the offic e requesting an annual physical. In addition patient wishes to discuss about her diabetes and depression. She has stopped taking all her diabetes medications since December. A favorite dog, her pet for the past 15 years and that triggered a bout of depression. Patient withdrew herself from everybody, did not want to go out of the house and was not taking medications. Her blood sugars are elevated. [facility] Medical History Endogenous depression Class 1 obesity with body mass index (BMI) of 33.0 to 33.9 in adult Constipation by delayed colonic transit Essential (primary) hypertension Diabetes mellitus Surgical History No history of previous surgery Family History Mother No problems noted. Father No problems noted. Family/Other Mental health disorder Social History Housing: House Alcohol intake: never Patient Tobacco Use Status: Current everyday Tobacco user Tobacco use type: Cigarette Cigarette Packs Per Day: 0.5 Cigarettes Per Day: 10 e-Cigarette/Vaping Use: Never Used Second Hand Smoke Exposure: Yes service: No Current occupational status: retired Cognitive needs: No Hearing needs: No Vision needs: Yes (adri) Questionnaire PHQ-9 Over the last 2 weeks, how often have you been bothered by any of the following problems? 1. Little interest or pleasure in doing things: nearly every day 2. Feeling down, depressed, or hopeless: nearly every day 3. Trouble falling or staying asleep, or sleeping too much: not at all 4. Feeling tired or having little energy: nearly every day 5. Poor appetite or overeating: not at all 6. Feeling bad about yourself - or that you are a failure or have let yourself or your family down: more than half the days 7. Trouble concentrating on things, such as reading the newspaper or watching television: not at all 8. Moving or speaking so slowly that other people could have noticed. Or the opposite - being so fidgety or restless that you have been moving around a lot more than usual: not at all 9. Thoughts that you would be better off or of hurting yourself in some way: not at all Total score: 11 Depression Screening Interpretation: Positive Depression Screening Follow-up: New Medication prescribed Depression Screening Done: Yes Source: Developed by Drs. Ravin Miles, Christen Adhikari, Ben Fajardo and colleagues, with an educational betty from [employer]. Thrive Questionnaire Date Thrive assessed: 07/12/23 I am a: Patient What is your living situation today?: I choose not to answer this question Within the past 12 months, did the food you bought not last and you didn't have the money to get more?: I choose not to answer this question Within the past 12 months, did you worry whether your food would run out before you got money to buy more?: I choose not to answer this question Do you have trouble paying for medicines?: No Do you have trouble getting transportation to medical appointments?: No Do you have trouble paying your heating and electricity bill?: No Do you have trouble taking care of your child, family member or friend?: No Do you have trouble with day-to-day activities such as bathing, preparing meals, shopping, managing finances, etc.?: No Are you currently unemployed and looking for a job?: No Are you interested in more education?: No Please select the resources that you would like help with: None Currently or been in a relationship where the following occur: I choose not to answer THRIVE Score: 0 AUDIT C Alcohol Use Questionnaire (AUDIT-C) 1. How often do you have a drink containing alcohol?: Never Total Score: 0 SUKHWINDER-7 AMB Questionnaire SUKHWINDER-7 Date SUKHWINDER - 7 assessed: 07/12/23 Feeling nervous, anxious, or on edge: 3 = Nearly every day Not being able to stop or control worryin = Not at all Worrying too much about different things: 0 = Not at all Trouble relaxin = Not at all Being so restless that it is hard to sit still: 0 = Not at all Becoming easily annoyed or irritable: 0 = Not at all Feeling afraid as if something awful might happen: 0 = Not at all Total SUKHWINDER-7 score (0-4 normal; 5-9 mild; 10-14 moderate; 15-21 severe): 3 Source: Developed by Drs. Ravin Miles, Christen Adhikari, Ben Fajardo and colleagues, with an educational betty from [employer]. Physical exam (Primary Care) Vital Signs: Last Vital Signs Pulse 107 H 02/15/24 10:26 BP 120/70 02/15/24 10:26 Pulse Ox 95 02/15/24 10:26 Oxygen Delivery Method Room Air 02/15/24 10:26 Care Plan Goal for BP management: Blood pressure is in range. BMI result Body Mass Index 31.3 BMI Assessment/Plan discussion: High (1 lb per week weight loss suggested.) BMI High, discussed plan: lifestyle, weight reduction, dietary and physical activity Tobacco/Smoking Status: Tobacco use Status Tobacco use date assessed 02/15/24 02/15/24 10:40 Patient Tobacco Use Status Current everyday Tobacco 02/15/24 10:40 Tobacco use type Cigarette 02/15/24 10:40 e-Cigarette/Vaping Use Never Used 02/15/24 10:40 Are you ready to quit: No Tobacco cessation counseling provided: No Tobacco use cessation counseling not done medical reason: other (Patient is not willing to quit at the moment.) PHQ-9: PHQ-9 Score PHQ-9: Total score 11 09/12/24 10:40 Depression Screening Interpretation: Positive Depression Screening Follow-up: New Medication prescribed Thrive Assessment: Date of Thrive Assessment Date Thrive assessed 07/12/23 02/15/24 10:40 Currently or been in a relationship where the following occur: I choose not to answer Const General: cooperative and healthy appearing Nutritional Appearance: well nourished Orientation/consciousness: patient oriented x3 Limitations: no limitations HENMT Head: Yes normal to inspection Eyes General: appearance normal, both eyes and all related structures Neck Neck: Yes normal visual inspection Chest Chest palpation & inspection: normal palpation of entire chest wall Resp Effort & Inspection: normal respiratory effort Neuro General: patient oriented x3 Results AMB Hemoglobin A1c AMB Hemoglobin A1c 8.2 % Last Edit by TORRI Arias on 02/15/24 10:40 Results Reviewed Results Reviewed: Laboratory Last Values Hgb A1c (Clinic) 8.2 % (4.0-6.0) H 02/15/24 10:25 Assessment and Plan Assessment & Plan (1) Annual physical exam: Code(s): Z00.00 - Encounter for general adult medical examination without abnormal findings Plan: Screening mammogram ordered. Patient has now agreed to get a Cologuard done. The same test has been ordered. (2) Endogenous depression: Code(s): F33.2 - Major depressive disorder, recurrent severe without psychotic features Plan: SSRI started. Patient has agreed and promised compliance. (3) Diabetes mellitus: Code(s): E11.9 - Type 2 diabetes mellitus without complications Plan: Patient has just restarted her medications. Her elevated A1c was notified to her. Orders: Orders AMB Hemoglobin A1c Today E11.9 - Type 2 diabetes mellitus without complications MM screening mammo BI Today Z12.31 - Encounter for screening mammogram for malignant neoplasm of breast Referrals Cologuard Test Z12.11 - Encounter for screening for malignant neoplasm of colon Medications: Discontinued docusate sodium (Colace) Discontinued Reason: Doctor's Order 100 mg PO .every other day 30 caps 1RF acetaminophen Discontinued Reason: Doctor's Order 1,000 mg (2 x 500 mg) PO Q6H PRN 30 caps 0RF pain (scale score 7-10) M25.511 - Pain in right shoulder polyethylene glycol 3350 (Miralax) Discontinued Reason: Doctor's Order 17 grams PO DAILY PRN 119 grams 0RF constipation K59.01 - Slow transit constipation bisacodyl (Dulcolax (bisacodyl)) Take 4 tablets by mouth at 12:00pm the day before your procedure. Discontinued Reason: Doctor's Order 20 mg (4 x 5 mg) PO ONCE 1 day 4 tabs 0RF colonoscopy prep Z12.11 - Encounter for screening for malignant neoplasm of colon Coding Level of Care Code Est Pt Level 4 (25839) New Pt Prev Care >65yr (64486) Diagnoses Annual physical exam Z00.00 Endogenous depression F33.2 Diabetes mellitus E11.9
[2024-02-15 10:26] VITALS: BP 120/70; PULSE 107; O2SAT 95; BMI 31.3
== END 2024-02-15 11:05 | disposition home or self-care (01) ==
PROVIDERS: PCP Internal Medicine; Visit Provider Internal Medicine
DX: Z00.00 Encounter for general adult medical examination without abnormal findings (principal); F33.2 Major depressive disorder, recurrent severe without psychotic features; E11.9 Type 2 diabetes mellitus without complications
CPT/HCPCS: 83036; 99397

== ENCOUNTER 2024-05-15 11:13 | Outpatient (AMB) | payer MEDICARE, SELFPAY ==
--- NOTE | 2024-05-15 11:20 | AM.OFFWIN_ITS ---
Intake Vital Signs 05/15/24 11:23 Height 5 ft 4 in Weight 194 lb 8 oz BMI 33.4 BP 120/78 Blood Pressure Location Lt brachial Position Sitting Pulse 109 H Pulse Source Pulse Oximeter Temp 97.8 F Temp Source Temporal Artery Scan Pulse Oximetry (%) 98 Oxygen Delivery Method Room Air Intake Visit Reasons: EP Bilat knee, palm pain from fall Intake Note: Pt presents to the office today for bilateral knee pain and left palm pain after she fell on 05/13/24. Pt is also complaining of urinary symptoms. Patient Tobacco Use Status: Current everyday Tobacco user Allergies sulfamethoxazole [From Bactrim] Allergy (Mild, Verified 05/15/24 11:25) hives trimethoprim [From Bactrim] Allergy (Mild, Verified 05/15/24 11:25) hives metformin Adverse Reaction (Intermediate, Verified 05/15/24 11:25) abdominal bloating HPI EP Bilat knee, palm pain from fall HPI Details This note is constructed using voice recognition software. While every effort has been made to ensure accuracy, early intervention school psychologist errors may have been included. The patient is a 74 year old female who presents to the clinic today with mul tiple complaints. She reports that 2 days ago she fell landing on her hands palm side down, and her knees bilaterally. She reports that immediately her left knee started being swollen and more painful, but she was able to get up and walk around. She has no pain in the right side, but continues to have a slight amount of pain in the palmar surface of the left hand, as well as the left knee on the patella. She has not done anything to help improve the symptoms. She also complains urinary tract infection. 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 She denies back pain, urinary urgency, frequency, or burning. [facility] Medical History Endogenous depression Class 1 obesity with body mass index (BMI) of 33.0 to 33.9 in adult Constipation by delayed colonic transit Essential (primary) hypertension Diabetes mellitus Surgical History No history of previous surgery Family History Mother No problems noted. Father No problems noted. Family/Other Mental health disorder Social History Housing: House Alcohol intake: never Patient Tobacco Use Status: Current everyday Tobacco user Tobacco use type: Cigarette Cigarette Packs Per Day: 0.5 Cigarettes Per Day: 10 e-Cigarette/Vaping Use: Never Used Second Hand Smoke Exposure: Yes service: No Current occupational status: retired Cognitive needs: No Hearing needs: No Vision needs: Yes (glass) Review of Systems Const All systems reviewed & are unremarkable except as noted in HPI and below Physical Exam Vital Signs: Last Vital Signs Temp 97.8 F 05/15/24 11:23 Pulse 109 H 05/15/24 11:23 BP 120/78 05/15/24 11:23 Pulse Ox 98 05/15/24 11:23 Oxygen Delivery Method Room Air 05/15/24 11:23 BMI result Body Mass Index 33.4 Const General: cooperative, healthy appearing, comfortable, no acute distress and well developed Orientation/consciousness: patient oriented x3 Limitations: no limitations Resp Effort & Inspection: normal respiratory effort and able to speak in complete sentences General: Yes no CVA tenderness Back/Spine/Pelvis Back: no CVA tenderness Skin General skin exam: no rashes or lesions noted Neuro General: patient oriented x3 Extrem Other: Right hand and knee full range of motion, no areas of tenderness. Left hand full range of motion, no tender to palpation, no edema, erythema, warmth. Left knee full range of motion, however tenderness in the patella on extension, tender to palpation over patella. No edema, erythema, warmth. Distal neurovascular exam intact all 4 extremities. Strength 5/5. General: Yes normal to inspection Results AMB Urinalysis, Automated UA Leukoctes 15 Amada/uL Last Edit by Kaylene Davis CMA on 05/15/24 11:43 UA Nitrite Positive Last Edit by Kaylene Davis CMA on 05/15/24 11:43 UA Urobilinogen 0.2 mg/dL Last Edit by Kaylene Davis CMA on 05/15/24 11:43 UA Protein 30 mg/dL Last Edit by Kaylene Davis CMA on 05/15/24 11:43 UA pH 5.5 Last Edit by Kaylene Davis CMA on 05/15/24 11:43 UA Blood 25 Palmer/uL Last Edit by Kaylene Davis CMA on 05/15/24 11:43 UA Specific [place] 1.030 Last Edit by Kaylene Davis CMA on 05/15/24 11:43 UA Ketone Positive Last Edit by Kaylene Davis CMA on 05/15/24 11:43 UA Bilirubin 0 mg/dL Last Edit by Kaylene Davis CMA on 05/15/24 11:43 UA Glucose 250 mg/dL Last Edit by Kaylene Davis CMA on 05/15/24 11:43 Results Reviewed Results Reviewed: Laboratory Last Values Urine pH (Auto) 5.5 05/15/24 11:41 Specific [place] (Auto) 1.030 05/15/24 11:41 Urine Protein (Auto) 30 mg/dL 05/15/24 11:41 Glucose (UA)(Auto) 250 mg/dL 05/15/24 11:41 Urine Ketones (Auto) Positive 05/15/24 11:41 Urine Blood (Auto) 25 Palmer/uL 05/15/24 11:41 Urine Nitrite (Auto) Positive 05/15/24 11:41 Urine Bilirubin (Auto) 0 mg/dL 05/15/24 11:41 Urine Urobilinogen (Auto) 0.2 mg/dL 05/15/24 11:41 Leukocyte Esterase (Auto) 15 Amada/uL 05/15/24 11:41 Assessment & Plan Assessment & Plan (1) Urinary tract infection: Code(s): N39.0 - Urinary tract infection, site not specified Qualifiers: Hematuria presence: without hematuria Urinary tract infection type: acute cystitis Qualified Code(s): N30.00 - Acute cystitis without hematuria Plan: Supportive measures encouraged and reviewed. Antibiotic sent to requested pharmacy, advised patient to take antibiotics until completed and not to stop if feeling better, unless the patient has side effects. Advised patient to follow up with primary care provider with worsening or failure to resolve. (2) Pain in left knee: Code(s): M25.562 - Pain in left knee Qualifiers: Chronicity: acute Qualified Code(s): M25.562 - Pain in left knee Plan: X-ray is negative for obvious fracture. Advised patient to rest, ice, elevate. Pt declined christiano wrap, advised follow up as needed with worsening or failure to resolve. (3) Pain in left hand: Code(s): M79.642 - Pain in left hand Plan: bvious fracture. Advised patient to rest, ice, elevate. Patient declined wrap or brace. Advised follow up as needed with worsening or failure to resolve. Plan See above for full details and plan. Orders: Orders XR knee LT 3V Today M25.562 - Pain in left knee AMB Urinalysis Automated Today R82.90 - Unspecified abnormal findings in urine Urine Culture Today R82.90 - Unspecified abnormal findings in urine XR hand LT min 3V Today M79.642 - Pain in left hand Medications: New nitrofurantoin monohyd/m-cryst 100 mg must administer with a meal/food 100 mg PO Q12H 5 days 10 caps 0RF Coding Level of Care Code Est Pt Level 4 (97246) Diagnoses Acute cystitis without hematuria N30.00 Hematuria presence: without hematuria Urinary tract infection type: acute cystitis Acute pain of left knee M25.562 Chronicity: acute Pain in left hand M79.642
[2024-05-15 11:23] VITALS: BP 120/78; PULSE 109; TEMP 36.6; O2SAT 98; BMI 33.4
== END 2024-05-15 12:52 | disposition home or self-care (01) ==
PROVIDERS: PCP Internal Medicine; Visit Provider Registered Nurse
DX: N30.00 Acute cystitis without hematuria (principal); M25.562 Pain in left knee; M79.642 Pain in left hand; R82.90 Unspecified abnormal findings in urine

== ENCOUNTER 2024-05-15 11:13 | Outpatient (REF) | payer MEDICARE, SELFPAY | END 2024-05-15 11:14 | disposition home or self-care (01) | LOC: HO.LAB 11:13 | PROVIDERS: PCP Internal Medicine | DX: Z13.89 Encounter for screening for other disorder (principal) | CPT/HCPCS: 81003; 99212 ==

== ENCOUNTER 2024-05-15 11:47 | Outpatient (REF) | payer MEDICARE, SELFPAY ==
--- NOTE | ~2024-05-15 | XR_ITS ---
EXAMINATION: XR HAND, LEFT CLINICAL INFORMATION: M79.642 - Pain in left hand COMPARISON: None available. TECHNIQUE: PA, lateral, and oblique views of the left hand. FINDINGS: Diffuse osteopenia. There is mild arthritic change at the first CMC joint. There is no fracture, dislocation, or destructive process. There may be mild arthritic change at the third DIP. XR/XR hand LT min 3V IMPRESSION: No acute findings. Mild arthritic changes observed. Electronically signed by: Sulaiman Sawyer MD 05/15/2024 02:45 PM [facility]
--- NOTE | ~2024-05-15 | XR_ITS ---
EXAMINATION: XR KNEE, LEFT CLINICAL INFORMATION: M25.562 - Pain in left knee COMPARISON: None available. TECHNIQUE: Four views of the left knee. FINDINGS: Advanced narrowing of the medial joint space with marginal spurring. There is spurring off the superior patella. No fracture, dislocation or destructive process. XR/XR knee LT 3V IMPRESSION: Degenerative changes observed. Electronically signed by: Sulaiman Sawyer MD 05/15/2024 02:55 PM [facility]
== END 2024-05-15 11:48 | disposition home or self-care (01) ==
LOC: HO.HMGCX 11:47
PROVIDERS: PCP Internal Medicine; Visit Provider Registered Nurse
DX: M25.562 Pain in left knee (principal); M79.642 Pain in left hand; R82.90 Unspecified abnormal findings in urine
CPT/HCPCS: 73130; 73562; 81003; 87086; 87088; 87186; 99212